=== PATIENT | male | born 1970 | race Caucasian/White ===

== ENCOUNTER 2017-10-19 04:37 | Inpatient (IN) | payer BC, SELFPAY ==
[2017-10-19] MEDS ORDERED: Nitroglycerin 2% Ointment 1 INCH/1 GM Packet ONE (04:58)
[2017-10-19 05:31] LABS: #Basophils 0.1 thou/uL (0.0-0.2); #Eosinphils 0.1 thou/uL (0.0-0.7); #Monocytes 1.2 thou/uL (0.11-0.59); #Neutrophils 11.8 thou/uL (1.40-6.50); %Basophils 0.5 % (0.0-1.0); %Eosinophils 0.6 % (0.0-10.0); %Lymphocytes 18.5 % (21.0-51.0); %Monocytes 7.2 % (0.0-10.0); %Neutrophils 73.2 % (42.0-75.0); Hemoglobin 16.9 g/dL (14.0-18.0); Mean Corpuscular HGB CONC 34.1 g/dL (32.0-36.0); Mean Corpuscular Hemoglobin 31.4 pg (27.0-31.0); Mean Corpuscular Volume 92.1 fl (80.0-94.0); Mean Platelet Volume 5.9 fL (7.4-10.4); Platelet Count 382 thou/uL (130-400); RBC Distribution Width 11.3 % (11.5-14.5); Red Blood Cell (RBC) Count 5.37 mill/uL (4.70-6.10); White Blood Cell (WBC) Count 16.1 thou/uL (4.8-10.8)
[2017-10-19 05:34] LABS: PTT 26.2 SEC (22.9-36.1); Prothrombin Time 12.9 SEC (12.0-14.7)
[2017-10-19 05:41] LABS: ALT (SGPT) 51 U/L (8-55); AST (SGOT) 92 U/L (5-34); Albumin 4.5 g/dL (3.5-5.0); Alkaline Phosphatase 83 U/L (40-150); Anion Gap 13 mmol/L (10-20); BUN (Urea Nitrogen) 22 mg/dL (8.9-20.6); Bilirubin, Total 0.6 mg/dL (0.2-1.2); CK (CPK) 1472 U/L (30-200); Calc. Creatinine Clearance 0 mL/min (70-130); Calcium 9.8 mg/dL (7.8-10.44); Carbon Dioxide 20 mmol/L (22-29); Chloride 105 mmol/L (98-107); Estimated GFR-MDRD 87; Glucose 170 mg/dL (70-105); Lipase 64 U/L (8-78); Protein, Total 7.5 g/dL (6.0-8.3); Sodium 134 mmol/L (136-145)
[2017-10-19 06:10] LABS: CKMB 175.9 ng/mL (0-6.6); Troponin I 6.902 ng/mL (< 0.028)
[2017-10-19] MEDS ORDERED: Nitroglycerin 50 MG/250 ML BOT 250 ML ONE (06:32)
[2017-10-19] MEDS ORDERED: Heparin 25,000 units/D5W 500 ML IV SCH (06:45)
[2017-10-19] MEDS ORDERED: Heparin 10,000 UNITS/ 10 ML VIAL SLOW IVP SCH (06:45)
[2017-10-19] MEDS ORDERED: Heparin 25,000 units/D5W 500 ML ONE (07:00)
[2017-10-19] MEDS ORDERED: Nitroglycerin 50 MG/250 ML BOT 250 ML IVPB SCH (07:15)
[2017-10-19] MEDS ORDERED: Acetaminophen 500 MG TAB ONE (07:16)
[2017-10-19] MEDS ORDERED: Lidocaine 1% (PF) 30 ML VIAL ONE (08:03)
--- NOTE | 2017-10-19 08:18 | RAD ---
PORTABLE CHEST 1 VIEW: Date: 10/19/17 Time: 0453 hours HISTORY: Chest pain. FINDINGS: The heart size is normal. The lungs are well expanded without focal areas of consolidation, pneumotho rax, or pleural effusions. IMPRESSION: No acute process. POS: [facility]
[2017-10-19] MEDS ORDERED: Nitroglycerin 0.4 MG TAB (25 Tab Bottle) SL PRN (08:49)
[2017-10-19] MEDS ORDERED: Morphine 4 MG/ML VIAL SLOW IVP PRN (08:49)
[2017-10-19] MEDS ORDERED: Acetaminophen 325 MG TAB PO PRN (08:57)
[2017-10-19] MEDS ORDERED: Ondansetron ODT 4 MG TAB PO PRN (08:57)
[2017-10-19] MEDS ORDERED: Zolpidem Tartrate 5 MG TAB PO PRN (08:57)
[2017-10-19] MEDS ORDERED: Sodium Chloride 0.9% 1,000 ML IV SCH (09:00)
[2017-10-19] MEDS ORDERED: Heparin 10,000 UNITS/1 ML VIAL ONE (09:13)
[2017-10-19 10:01] LABS: CKMB 269.8 ng/mL (0-6.6)
[2017-10-19 10:15] LABS: Troponin I 47.427 ng/mL (< 0.028)
[2017-10-19] MEDS ORDERED: Iopamidol 370 76% 50 ML VIAL FS ONE (10:26)
[2017-10-19] MEDS ORDERED: Iopamidol 370 76% 100 ML VIAL ONE (10:26)
[2017-10-19 13:53] VITALS: BMI 32.1
[2017-10-19] MEDS: Clopidogrel Bisulfate 75 MG TAB PO SCH (14:26)
--- NOTE | 2017-10-19 18:12 | CON ---
DATE OF CONSULTATION: 10/19/2017 SERVICE: Pulmonary Medicine. REASON FOR CONSULTATION: ICU patient. HISTORY OF PRESENT ILLNESS: The patient is a 47-year-old white male with past medical history significant for nothing prior to this presentation. He was in his usual state of health until 4 o'clock yesterday afternoon when he had an abrupt onset of some chest discomfort. He watched it for a period of a little less than a day. He finally presented to the emergency department and was discovered to have an ST-elevation myocardial infarction. He was brought to the [facility]. The circumflex artery was opened up and he had near immediate resolution in his chest discomfort. He currently denies any nausea, vomiting, or diarrhea. He does feel like he needs to have a bowel movement, but will have a hard time doing so in the bed. As such, he is requesting to get up at this point. He has already been cleared for gentle movement. PAST MEDICAL HISTORY: None. PAST SURGICAL HISTORY: None. SOCIAL HISTORY: He has a 40 to 41-[id number] history of smoking and until yesterday was smoking 1 pack per day. He drinks occasionally. He does not use any illicit drugs. 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 He has no exposure to chemicals, dust, asbestos, or tuberculosis otherwise. FAMILY HISTORY: Dad had coronary artery disease. Otherwise, noncontributory. ALLERGIES: No known drug allergies. MEDICATIONS: List of his inpatient medications was reviewed. No updates were made at this time. REVIEW OF SYSTEMS: General, head, ears, eyes, nose, throat, cardiovascular, respiratory, GI, , musculoskeletal, neurologic, and skin is negative except as mentioned in the HPI. PHYSICAL EXAMINATION: VITAL SIGNS: Afebrile, pulse 78, blood pressure 135/73, respirations 20, saturation 97% on room air. GENERAL: The patient is awake, alert, in no apparent distress. LUNGS: Excellent air entry. There is a minimally prolonged expiratory phase, but it does not translate into adventitious sounds. HEART: Normal rate, regular. ABDOMEN: Soft, nontender, nondistended. Bowel sounds are positive. MUSCULOSKELETAL: No cyanosis or clubbing. There is no pitting in the bilateral lower extremities. NEUROLOGIC: Grossly nonfocal. LABORATORY DATA: WBC 16.1, hemoglobin 16.9, platelets 382,000. INR is 1.0. Troponin is 47.4. BNP is 117. Basic metabolic profile and liver function studies are unremarkable. IMAGING: Chest x-ray demonstrates minimal fullness of the interstitium as well as subtle pulmonary vascular congestion. Otherwise, there is no acute cardiopulmonary abnormality present. ASSESSMENT: ST-elevation myocardial infarction, status post percutaneous coronary intervention to the circumflex artery. PLAN: I will continue to monitor the patient in the telemetry in the ICU for the next 24 hours. If there were no events on the playground monitor, he will likely be transitioned to the floor and/or discharged home based on cardiology' s preference. Pulmonary Critical Care will continue to follow so long as he remains in this location. I will screen him tomorrow for sleep apnea and if present, we will consider setting him up for a sleep study in the outpatient setting. 70 minutes have been devoted to this patient in various activities. I personally reviewed all imaging studies and laboratory data noted within this document. For fifty percent of this time, I was interacting with the patient at the bedside or coordinating care with the care team. For the remainder of the time I was immediately available to the patient in the hospital unit. ABBIE
--- NOTE | 2017-10-19 18:15 | HP ---
DATE OF CONSULTATION: 10/19/2017 CHIEF COMPLAINT: Chest pain. HISTORY OF PRESENT ILLNESS: Mr. Zaragoza is a very pleasant 47-year-old white gentleman who comes to [facility] for chest pain. He started having chest pain yesterday at 6:00 p.m. He thought it may b e indigestion. He went to sleep and he was woken up about an hour later with severe chest tightness. He decided to come in to the hospital early in the morning where he was found to have a normal EKG with no ST elevations. He had a troponin drawn that was elevated at 6, so Cardiology was called imme diately. On my evaluation, Mr. Zaragoza was diaphoretic and had ongoing chest pain, so we decided to t pawan him emergently to the catheterization lab. He was found to have an occluded left circumflex on c odominant system. He has a large LPL. This was wired and stented with a drug-eluting stent. He did well. His pain actually improved after the artery was revascularized. He has residual RCA disease. He is doing much better now. He in the ICU without any issues at that time. PAST MEDICAL HISTORY: None. PAST SURGICAL HISTORY: None. SOCIAL HISTORY: Smokes about a pack a day for the last 30 years. No drug use. Social alcohol use. MEDICATIONS: None. ALLERGIES: No known drug allergies. REVIEW OF SYSTEMS: A 12-point review of systems was done and is all negative unless stated in histor y of present illness. PHYSICAL EXAMINATION: VITAL SIGNS: Temperature 97.8, pulse 52, respiration rate 18, satting 96% on room air, blood pressur e currently 135/73. GENERAL: Awake, alert, oriented x3, in no distress. HEENT: Normocephalic, atraumatic. NECK: Supple. LUNGS: Clear. CARDIOVASCULAR: S1, S2, no S3 or S4. There is a very soft grade 2/6 systolic murmur right upper misti rnal border. ABDOMEN: Soft, positive bowel sounds. EXTREMITIES: No edema. SKIN: Warm and dry. LABORATORY WORK: Reviewed. White count of 16, hemoglobin 16, hematocrit 49, platelet count 382. Co ags were reviewed. Chemistry was reviewed. Sodium 134, potassium was 4.0, chloride 105, carbon diox jarad 20, anion gap of 13, BUN 22, creatinine 0.93, GFR of 87. Initial troponin was 6.9 with a CK-MB o f 175. Second troponin after PCI was 47 with a CK-MB of 269. BNP was 117, albumin was normal at 4.5 . EKG was reviewed, normal sinus rhythm. There are Q-waves in the inferior leads. Initial EKG with ab out 0.[address] elevation on just lead III with mild reciprocal changes. Not suggestive of an acute SC . Chest x-ray showed no acute process. ASSESSMENT AND PLAN: Acute myocardial infarction. Left circumflex myocardial infractions are typica l of being silent on the EKG. He had a successful stenting to his left circumflex with drug-coated s tent. He states he is 2 months away from getting insurance from his current work place and he is jesenia y good with his medications. We did load him on Brilinta, but we will plan on continuing him on Plav ix for this to be more affordable. PLAN: 1. Dual antiplatelet therapy for minimum of one year. 2. We will add high dose statin to his regimen. We will get lipid profile in the morning. 3. Echocardiogram to be done. 4. We will observe in the ICU overnight, probably transfer him to the floor tomorrow morning. 5. Lovenox subcutaneous for DVT prophylaxis. 6. PPI for stress ulcer prophylaxis. 7. FULL CODE. 8. Disposition: Pending clinical evolution. I expect him to be in the hospital maybe one more day depending on echocardiogram findings.
[2017-10-20 04:38] LABS: #Basophils 0.1 thou/uL (0.0-0.2); #Eosinphils 0.2 thou/uL (0.0-0.7); #Lymphocytes 2.8 thou/uL (1.20-3.40); #Monocytes 1.1 thou/uL (0.11-0.59); #Neutrophils 8.4 thou/uL (1.40-6.50); %Basophils 0.7 % (0.0-1.0); %Eosinophils 1.7 % (0.0-10.0); %Lymphocytes 21.9 % (21.0-51.0); %Monocytes 8.6 % (0.0-10.0); Hemoglobin 16.2 g/dL (14.0-18.0); Mean Corpuscular Hemoglobin 32.2 pg (27.0-31.0); Mean Corpuscular Volume 94.7 fl (80.0-94.0); Mean Platelet Volume 6.3 fL (7.4-10.4); Platelet Count 309 thou/uL (130-400); RBC Distribution Width 11.4 % (11.5-14.5); Red Blood Cell (RBC) Count 5.05 mill/uL (4.70-6.10); White Blood Cell (WBC) Count 12.6 thou/uL (4.8-10.8)
[2017-10-20 05:00] LABS: ALT (SGPT) 56 U/L (8-55); AST (SGOT) 96 U/L (5-34); Albumin 4.2 g/dL (3.5-5.0); Alkaline Phosphatase 73 U/L (40-150); Anion Gap 12 mmol/L (10-20); BUN (Urea Nitrogen) 14 mg/dL (8.9-20.6); Bilirubin, Total 1.1 mg/dL (0.2-1.2); Calc. Creatinine Clearance 147 mL/min (70-130); Calcium 9.5 mg/dL (7.8-10.44); Carbon Dioxide 22 mmol/L (22-29); Chloride 106 mmol/L (98-107); Cholesterol 230 mg/dl (< 200 Desired); Estimated GFR-MDRD Greater than 90; Globulin 2.7 g/dL (2.4-3.5); Glucose 157 mg/dL (70-105); HDL Cholesterol 33 mg/dL (>60 Neg Risk); LDL Cholesterol, Calculated 152 mg/dL; Potassium 3.9 mmol/L (3.5-5.1); Protein, Total 6.9 g/dL (6.0-8.3); Sodium 136 mmol/L (136-145); Triglycerides 224 mg/dL (Less than 150)
[2017-10-20] MEDS: Carvedilol 3.125 MG TAB PO SCH ×2 (08:29→17:17)
[2017-10-20] MEDS: Clopidogrel Bisulfate 75 MG TAB PO SCH (08:30)
[2017-10-20] MEDS: Lisinopril 2.5 MG TAB PO SCH (08:30)
--- NOTE | 2017-10-20 10:31 | PRG ---
DATE OF SERVICE: 10/20/2017 SERVICE: Pulmonary Medicine. INTERVAL HISTORY: The patient is doing great from a cardiovascular and respiratory standpoint. He denies any fevers, chills, nausea, vomiting or chest discomfort. There were no overnight events. He is eating comfortably. He did not have any orthopnea. PHYSICAL EXAMINATION: VITAL SIGNS: Afebrile, pulse 78, blood pressure a 151/103, respirations 18, saturation 97% on room air. GENERAL: The patient is awake, alert, no apparent distress. LUNGS: Decent air entry. There is a little bit of crackles in the bibasilar region. HEART: Normal rate, regular. ABDOMEN: Soft, nontender, nondistended. Bowel sounds are positive. MUSCULOSKELETAL: No cyanosis or clubbing. No pitting in the bilateral lower extremities. NEUROLOGIC: Grossly nonfocal. LABORATORY DATA: WBC 12.6, hemoglobin 16.2, platelets 309,000. Basic metabolic profile is completely unremarkable. AST is gently up trending. ALT is gently up trending. Triglyceride 224. Liver function studies are otherwise unremarkable. ASSESSMENT: 1. Acute ST elevation myocardial infarction, status post percutaneous coronary intervention to the circumflex. 2. Obstructive sleep apnea, possible. PLAN: The patient is doing fantastic from a cardiovascular and respiratory standpoint. From my perspective, he is stable for transition to the telemetry unit or the floor. I have asked him to set up an appointment with me in the outpatient setting if he would like to look into sleep apnea. 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 ABBIE
--- NOTE | 2017-10-20 16:04 | PDOC.CTH ---
Cardiology Progress Note - Subjective he is doing better. He denies any chest pain, tightness, pressure, SOB. His right groin is without issues. - Objective Vital Signs Temp Pulse Pulse Pulse Resp BP BP 10/20/17 15:00 98.1 F 10/20/17 12:00 98.6 F 10/20/17 10:32 77 68 114/84 10/20/17 08:30 78 151/103 H 10/20/17 07:44 98.0 F 86 18 10/20/17 07:40 98.0 F 10/20/17 05:00 98.0 F BP Pulse Ox Pulse Ox Pulse Ox 10/20/17 15:00 10/20/17 12:00 10/20/17 10:32 123/86 97 98 10/20/17 08:30 10/20/17 07:44 97 10/20/17 07:40 10/20/17 05:00 10/19/17 10/20/17 10/21/17 06:59 06:59 06:59 Intake Total 1256 780 Output Total 2125 650 Balance -869 130 - Physical Examination General/Neuro: alert & oriented x3, NAD Neck: no JVD present Lungs: CTA, unlabored respirations Heart: RRR Abdomen: NT/ND Extremities: other: (no edema.) - Telemetry Telemetry Rhythm: NSR - Labs Result Diagrams: 10/20/17 03:47 10/20/17 03:47 Troponin/CKMB CK-MB (CK-2) 269.8 ng/mL (0-6.6) H* 10/19/17 09:21 Troponin I 47.427 ng/mL (< 0.028) H* 10/19/17 09:21 - Assessment/Plan 1. Acute MA. 2. S/.P LCx stent, LESLYE. 3. Tobacco use PLAN: - Tobacco cessation counselling. - Continue dual antiplatelet therapy with aspirin and plavix for 1 yr. - Low dose ACEI and BB. - Will transfer to telemetry floor. - Home tomorrow if he remains stable. - 30 minutes critical care.
[2017-10-21] MEDS: Lisinopril 2.5 MG TAB PO SCH (10:09)
[2017-10-21] MEDS: Carvedilol 3.125 MG TAB PO SCH (10:10)
[2017-10-21] MEDS: Clopidogrel Bisulfate 75 MG TAB PO SCH (10:10)
--- NOTE | 2017-10-21 11:49 | PDOC.CTH ---
Cardiology Progress Note - Subjective The pt seen and examined. No overnight events. No cardiac complaints. He is ready to d/kiara. - Objective Vital Signs Temp Pulse Pulse Pulse Resp BP BP 10/21/17 10:09 76 122/80 10/21/17 10:03 77 73 138/92 H 10/21/17 04:00 97.6 F 76 18 BP BP Pulse Ox Pulse Ox Pulse Ox 10/21/17 10:09 10/21/17 10:03 122/80 96 97 10/21/17 04:00 112/65 93 L 10/20/17 10/21/17 10/22/17 06:59 06:59 06:59 Intake Total 1256 1140 360 Output Total 2125 650 Balance -869 490 360 - Physical Examination General/Neuro: alert & oriented x3 Neck: no JVD present Heart: RRR Abdomen: soft Extremities: other: (No edema) - Telemetry Telemetry Rhythm: SR 89 - Labs Result Diagrams: 10/20/17 03:47 10/20/17 03:47 Troponin/CKMB CK-MB (CK-2) 269.8 ng/mL (0-6.6) H* 10/19/17 09:21 Troponin I 47.427 ng/mL (< 0.028) H* 10/19/17 09:21 - Assessment/Plan 1. Acute ID with S/P Lt Cx stent x 1 LESLYE on 10/19/17 - Stable with BBlocker, LAURA , ASA 81mg, and Plavix. Start Lipitor 10mg daily. Continue dual antiplatelet therapy with aspirin and plavix for 1 yr. 2. Tobacco use - smoking cessation education given to the pt. MAR reviewed * From Cardiac standpoint, the pt is stable to d/kiara home. The pt will f/u with Dr Koroma within 2-4 wks. Review of Systems - Review of Systems Constitutional: reports: no symptoms reported EENTM: reports: no symptoms reported Respiratory: reports: no symptoms reported Cardiac (ROS): reports: no symptoms reported ABD/GI: reports: no symptoms reported : reports: no symptoms reported Musculoskeletal: reports: no symptoms reported
[2017-10-21 12:14] VITALS: BP 131/74; TEMP 98.1
[2017-10-21] MEDS ORDERED: Atorvastatin Calcium 10 MG TAB PO SCH (21:00)
== END 2017-10-21 14:18 | disposition home or self-care (01) | DRG 247 ==
LOC: ERS 04:37 → CCU 09:34 → 2NO 10-20 15:33
PROVIDERS: ADMIT Internal Medicine Cardiovascular Disease; ATTEND Internal Medicine Cardiovascular Disease
PROC: 027034Z Dilation of Coronary Artery, One Artery with Drug-eluting Intraluminal Device, Percutaneous Approach (ICD-10-PCS; principal; 2017-10-19)
DX: I21.3 ST elevation (STEMI) myocardial infarction of unspecified site (principal); F17.210 Nicotine dependence, cigarettes, uncomplicated; G47.33 Obstructive sleep apnea (adult) (pediatric)
CPT/HCPCS: 36415; 71045; 80053; 80061; 82550; 82553; 83690; 83880; 84484; 85025; 85347; 85610; 85730; 92928; 93005; 93010; 93306; 93458; 93798; 96361; 96365; 96376; C1725; C1769; C1874; C1887; C9600; J1644; J2001

== ENCOUNTER 2018-01-10 09:28 | Observation (INO) | payer BC, SELFPAY ==
[2018-01-10] MEDS ORDERED: Nitroglycerin 0.4 MG TAB (25 Tab Bottle) ONE (09:43)
[2018-01-10 09:49] LABS: #Basophils 0.1 thou/uL (0.0-0.2); #Eosinphils 0.1 thou/uL (0.0-0.7); #Lymphocytes 2.4 thou/uL (1.20-3.40); #Monocytes 0.6 thou/uL (0.11-0.59); #Neutrophils 5.1 thou/uL (1.40-6.50); %Basophils 0.8 % (0.0-1.0); %Eosinophils 1.3 % (0.0-10.0); %Lymphocytes 29.2 % (21.0-51.0); %Neutrophils 61.7 % (42.0-75.0); Hemoglobin 15.3 g/dL (14.0-18.0); Mean Corpuscular HGB CONC 35.2 g/dL (32.0-36.0); Mean Corpuscular Hemoglobin 31.8 pg (27.0-31.0); Mean Corpuscular Volume 90.4 fL (78.0-98.0); Mean Platelet Volume 6.4 fL (7.4-10.4); Platelet Count 276 thou/uL (130-400); RBC Distribution Width 11.1 % (11.5-14.5); Red Blood Cell (RBC) Count 4.82 mill/uL (4.70-6.10); White Blood Cell (WBC) Count 8.2 thou/uL (4.8-10.8)
[2018-01-10 10:11] LABS: ALT (SGPT) 26 U/L (8-55); AST (SGOT) 21 U/L (5-34); Albumin 4.6 g/dL (3.5-5.0); Alkaline Phosphatase 88 U/L (40-150); Anion Gap 13 mmol/L (10-20); BUN (Urea Nitrogen) 20 mg/dL (8.9-20.6); Bilirubin, Total 0.6 mg/dL (0.2-1.2); CK (CPK) 433 U/L (30-200); Calc. Creatinine Clearance 0 mL/min (70-130); Calcium 9.7 mg/dL (7.8-10.44); Carbon Dioxide 23 mmol/L (22-29); Chloride 107 mmol/L (98-107); Estimated GFR-MDRD 78; Globulin 2.8 g/dL (2.4-3.5); Glucose 130 mg/dL (70-105); Lipase 38 U/L (8-78); Potassium 3.6 mmol/L (3.5-5.1); Protein, Total 7.4 g/dL (6.0-8.3); Sodium 139 mmol/L (136-145)
[2018-01-10 10:15] LABS: Troponin I Less than 0.010 ng/mL (< 0.028)
--- NOTE | 2018-01-10 10:43 | RAD ---
PORTABLE CHEST ONE VIEW: 01/10/2018 9:47 a.m. HISTORY: Chest pain. COMPARISON: 10/19/2017 FINDINGS: The heart size is normal. The lungs are well expanded without focal areas of consolidation, pneumoth oraces, or pleural effusions. IMPRESSION: No radiographic evidence of acute cardiopulmonary process. POS: [facility]
[2018-01-10] MEDS ORDERED: Nitroglycerin 2% Ointment 1 INCH/1 GM Packet ONE (11:56)
[2018-01-10] MEDS ORDERED: Ondansetron ODT 4 MG TAB PO PRN (13:53)
[2018-01-10] MEDS ORDERED: Ondansetron HCl/PF 4 MG/2 ML Vial IVP PRN (13:53)
[2018-01-10] MEDS ORDERED: Acetaminophen 325 MG TAB PO PRN (13:53)
[2018-01-10 14:05] VITALS: BMI 30.9
[2018-01-10] MEDS: Nitroglycerin 2% Ointment 1 INCH/1 GM Packet TOP SCH ×2 (15:14→20:17)
--- NOTE | 2018-01-10 15:41 | PDOC.EVN ---
Event Note - Event Note Event Note: discussed with Dr. Vides - cover with one dose of lovenox while waiting for troponins. Will start diet. Further plan based on troponin and telemetry monitoring as well as pain. Elevated blood sugars - check hemoglobin a1c and fasting glucose in AM
[2018-01-10] MEDS ORDERED: Enoxaparin Sodium 100 MG/ML SYRINGE SC SCH (15:45)
[2018-01-10 16:15] LABS: Troponin I Less than 0.010 ng/mL (< 0.028)
[2018-01-10 16:49] LABS: Hemoglobin A1c 6.6 % (4.0-6.0)
[2018-01-10] MEDS: Sodium Chloride 0.9% 1,000 ML IV SCH (16:52)
[2018-01-10 18:38] LABS: Troponin I Less than 0.010 ng/mL (< 0.028)
[2018-01-10] MEDS ORDERED: Lisinopril 2.5 MG TAB PO SCH (21:00)
[2018-01-10] MEDS ORDERED: Carvedilol 3.125 MG TAB PO SCH (21:00)
[2018-01-10] MEDS ORDERED: Atorvastatin Calcium 10 MG TAB PO SCH (21:00)
[2018-01-10] MEDS ORDERED: Clopidogrel Bisulfate 75 MG TAB PO SCH (21:00)
--- NOTE | 2018-01-10 22:22 | HP ---
DATE OF SERVICE: 01/10/2018 CHIEF COMPLAINT: Chest pain. HISTORY OF PRESENT ILLNESS: This is a 47-year-old male with history of coronary artery disease, status post stent placement in 10/2017 on dual antiplatelet therapy, who presents to the emergency room with ongoing chest pain. Patient reports it started when he woke up around 2:30 this morning and has been persistent, describes that "more like angina" in the center of his chest to the left side with radiation to his left shoulder. It is sharp at times, steady, and constant and aching as well. He notes difficulty breathing earlier today, which has improved. 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 Despite having nitroglycerin, he did not take any. He reports the pain is different compared to October when he came in and found to have a non-ST elevation LA, during which a stent was placed in his left circumflex, and describes that pain as an "electric shock." He did not take any medicines to reduce the pain. Denies missing any of his regular medicines, denies any precipitants or relieving factors. Patient does describe a headache now after nitroglycerin was placed. He denies any nausea or vomiting, and rates the current pain as a 1/10 in severity. In the emergency room, he received 1 inch of nitro paste, 4 mg of morphine, 0.4 mg sublingual nitroglycerin, and 324 mg of aspirin and Hospitalist called for admission. PAST MEDICAL HISTORY: Coronary artery disease with history of stent in the left circumflex October 2017. PAST SURGICAL HISTORY: Stent placement as above. SOCIAL HISTORY: Patient uses tobacco 1/2 pack per day and reports that he is cutting down. He is recently from his . His son Yomi is his surrogate decision maker and he is a FULL CODE. MEDICATIONS: Reconciled with the patient and are the same compared to his last hospital discharge. 1. Nitroglycerin 0.4 mg sublingual as needed. 2. Coreg 3.125 mg at night only. 3. Atorvastatin 10 mg at night. 4. Lisinopril 2.5 mg at night. 5. Plavix 75 mg at night. 6. Aspirin 81 mg at night. ALLERGIES TO MEDICATIONS: None. FAMILY HISTORY: Significant for father who has coronary artery disease, history of bypass, and congestive heart failure. REVIEW OF SYSTEMS: Positive for headache, negative for abdominal pain, nausea, vomiting, change in bowel or bladder function. All remaining review of systems are reviewed and negative. PHYSICAL EXAMINATION: VITAL SIGNS: Temperature 97.7, pulse 62, respirations 20, saturations 95% on room air, blood pressure 118/74. GENERAL: Awake, alert, responsive, in no apparent distress, able to speak in full sentences. HEENT: Pupils equal and round. Extraocular movements intact. Oral mucosa is pink and moist. NECK: Supple, nontender. LYMPHATICS: No palpable cervical or supraclavicular lymphadenopathy. LUNGS: Clear to auscultation bilateral. No audible wheezing, rhonchi, or rales. HEART: Normal S1, S2, regular rate and rhythm, no audible murmurs. ABDOMEN: Soft with present bowel sounds. Nontender, nondistended. EXTREMITIES: No clubbing, cyanosis, or edema. VASCULAR: 2+ dorsalis pedis pulses. SKIN: No visible rashes. IMAGING DATA: Chest x-ray is personally reviewed, no acute changes. EKG is personally reviewed, sinus rhythm, normal axis, no ST changes. LABORATORY DATA: 1. CBC: 8.2, 15.3, 43.5, 276. 2. D-dimer less than 0.27. 3. Renal panel: 139, 3.6, 107, 23, 20, 1.02, 130. 4. LFTs negative. 5. Troponin less than 0.01, CK-MB 7, CK 433. IMPRESSION: 1. Unstable angina in a patient with known coronary artery disease and stent placement approximately 2 months ago. 2. Tobacco abuse. PLAN: 1. T ongoing chest pain is concerning, this with the nitroglycerin paste. We will add morphine. He has received aspirin, last dose of Plavix was last night , is on a beta-nora at night and we will continue that as well as his low- dose LAURA inhibitor. 2. Cardiology consulted and made aware of the ongoing pain without EKG changes. We will obtain two more sets of troponins. 3. IV fluids while n.p.o. awaiting Cardiology evaluation and follow up troponins. 4. Nicotine replacement if needed. 5. Deep venous thrombosis prophylaxis, patient is ambulatory. 6. Gastrointestinal prophylaxis not indicated. 7. Code status is FULL. Surrogate decision maker is his son Yomi. I reviewed the plan of care with the patient. No questions or further needs at end of evaluation. Patient is at high risk given age, comorbidities, and current presentation. Addendum - after dictation, discussed patient with Dr. Vides and pt received one dose of 1 mg/kg lovenox while awaiting additional troponin levels. Pt also noted to have elevated blood sugars in the past - a hemoglobin a1c test and fasting AM blood sugar are ordered. MTDD
--- NOTE | 2018-01-10 22:56 | CON ---
DATE OF CONSULTATION: 01/10/2018 INDICATION FOR CONSULTATION: A 47-year-old patient with known coronary artery disease, who was admit sara with chest pain. HISTORY OF PRESENT ILLNESS: This very pleasant 47-year-old gentleman was recently seen by Dr. Koroma on 10/19/2017 with an acute myocardial infarction. He underwent cardiac catheterization, which show ed evidence of a left circumflex occlusion. He underwent angioplasty and stent placement. He also h ad some residual disease in the right coronary artery and he was discharged to home after about 2 day s and did very well. He had a large posterolateral branch and suffered an inferior myocardial infarc tion with his previous myocardial infarction. His peak troponin I in October was 47. At this time, e troponin I remains negative. The story is that this gentleman had noticed some chest discomfort si nce about 2:30 this morning when he got up, but he went to work. 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 A t work, he was feeling some discomfort and knows that he did not feel like he could work as fast that he usually did, and then eventually was called by his hydrochloric area supervisor after about being at work for 4 ibeth rs during the lunch break, and then had some interaction or argument with the hydrochloric area supervisor, and then ev entually said that he was leaving and going to the hospital. He has also noticed that he has been simeon ving some retrosternal discomfort, which sometimes he says is sharp and stabbing, radiating to the le ft shoulder. Sometimes it is dull. Sometimes he complains of some shortness of breath. He said thi s is different pain than what he suffered with his myocardial infarction. He said he knows what that feels like. He has also been having occasional cough with some productive phlegm, but otherwise has been doing quite well, but states he has some chest discomfort ever since he left the hospital and s ays he sometimes feels like maybe he can feel the stent, but he has had no other significant changes. PAST MEDICAL HISTORY: Relatively unremarkable except for the coronary artery disease with angioplast y and stent placement. PAST SURGICAL HISTORY: He has had no past surgical history except for the stent placement. SOCIAL HISTORY: He continues to smoke half a pack a day and has done so for 30 years. He has no sig nificant alcohol use except for occasionally, just social. MEDICATIONS: He is on Plavix, aspirin, Lipitor, lisinopril, and Coreg. ALLERGIES: None. REVIEW OF SYSTEMS: Twelve-point review of systems is unremarkable except what was noted in the histo ry of present illness. PHYSICAL EXAMINATION: GENERAL: Reveals a well-developed, well-nourished gentleman who is in no acute distress at this time . He is alert and oriented. VITAL SIGNS: Blood pressure 118/74. He is afebrile. Heart rate is in the 60s and shows a sinus rhy thm, respiratory rate is 20, O2 saturation is 95%. HEENT: Shows the head to be normocephalic and atraumatic. Carotid pulses are present. No bruits no sara. CHEST: Clear to auscultation without rales, rhonchi, or wheezing. CARDIOVASCULAR: Reveals regular rate and rhythm. Normal S1, S2. There is no S3, S4. There were no significant murmurs, heaves, thrills, bruits, or rubs noted. ABDOMEN: Soft and nontender with positive bowel sounds. No organomegaly or masses are noted. Femor al pulses are present. EXTREMITIES: Showed no clubbing, cyanosis, or edema. NEUROLOGIC: The patient appears to be fully intact. SKIN: Warm and dry. LABORATORY AND X-RAY FINDINGS: His laboratory data did show a CPK of 433; however, previously back i n October, it was 1472. It was noted his cardiac enzymes are negative at this time, and I have dictate d earlier what they were. His blood sugar is also elevated at 130. Previously, the blood sugars als o were elevated in the 150s-170s. The blood sugars have been elevated. In October, they were 170 and today it was in 130s. He is unaware that he is a diabetic, but may certainly be a diabetic. This wi ll need to be further evaluated. Otherwise, his chemistries are unremarkable. The creatinine is 1.0 2. His hemoglobin was 15.3. EKG shows a normal sinus rhythm with what appears to be old inferior myocardial infarction, most like ly due to the dominant or codominant system with a large posterolateral branch in the left circumflex . IMPRESSION: 1. Chest pain of uncertain etiology. This does not, at this time, appear to be cardiac in nature wi th no significant EKG changes and enzymes being negative, but we will need to follow him with repeat set of enzymes. Since he had a recent stent placement, he may need to undergo repeat cardiac cathete rization. He also had further stenosis in the right coronary artery, which did not appear to be nece ssary to intervene at that time, it was less than 70% stenosis as I recall. We will continue his med ical management at this time. I will leave further care of the patient up to Dr. Koroma when he eval uates him later today or tomorrow morning. Further cardiac enzymes are still pending. He may need t o undergo stress testing; however, he did have stent placement only 2 months ago. 2. Elevated blood sugars. It appears he may need to be started on diabetic medications. 3. History of tobacco abuse. He was again informed that he needs to absolutely stop smoking.
[2018-01-11] MEDS: Sodium Chloride 0.9% 1,000 ML IV SCH ×2 (02:46→10:51)
[2018-01-11 04:38] LABS: #Basophils 0.1 thou/uL (0.0-0.2); #Eosinphils 0.1 thou/uL (0.0-0.7); #Lymphocytes 2.7 thou/uL (1.20-3.40); #Monocytes 0.7 thou/uL (0.11-0.59); #Neutrophils 4.2 thou/uL (1.40-6.50); %Basophils 0.8 % (0.0-1.0); %Eosinophils 1.9 % (0.0-10.0); %Lymphocytes 34.5 % (21.0-51.0); %Monocytes 8.7 % (0.0-10.0); %Neutrophils 54.2 % (42.0-75.0); Hemoglobin 14.5 g/dL (14.0-18.0); Mean Corpuscular HGB CONC 35.6 g/dL (32.0-36.0); Mean Corpuscular Hemoglobin 32.8 pg (27.0-31.0); Mean Corpuscular Volume 92.3 fL (78.0-98.0); Mean Platelet Volume 6.3 fL (7.4-10.4); Platelet Count 220 thou/uL (130-400); RBC Distribution Width 11.2 % (11.5-14.5); Red Blood Cell (RBC) Count 4.42 mill/uL (4.70-6.10); White Blood Cell (WBC) Count 7.7 thou/uL (4.8-10.8)
[2018-01-11 04:49] LABS: Anion Gap 9 mmol/L (10-20); BUN (Urea Nitrogen) 16 mg/dL (8.9-20.6); Calc. Creatinine Clearance 131 mL/min (70-130); Calcium 8.7 mg/dL (7.8-10.44); Carbon Dioxide 26 mmol/L (22-29); Chloride 107 mmol/L (98-107); Estimated GFR-MDRD 87; Glucose 129 mg/dL (70-105); Potassium 3.6 mmol/L (3.5-5.1); Sodium 138 mmol/L (136-145)
[2018-01-11] MEDS ORDERED: Aspirin 325 MG TAB PO SCH (09:00)
[2018-01-11 11:47] VITALS: BP 170/101; TEMP 98.7
--- NOTE | 2018-01-11 13:35 | PDOC.CTH ---
Cardiology Progress Note - Subjective He is doing well. no chest pain, tightness, pressure, SOB. - Objective Vital Signs Temp Pulse Resp BP BP Pulse Ox 01/11/18 11:20 98.7 F 57 L 16 170/101 H 96 01/11/18 08:00 98.8 F 57 L 18 01/11/18 07:45 98.8 F 57 L 18 156/93 H 01/11/18 02:44 97.5 F L 54 L 16 123/77 94 L Weight 209 lb 9.6 oz 01/10/18 01/11/18 01/12/18 06:59 06:59 06:59 Intake Total 1830 25 Output Total 1025 Balance 805 25 - Physical Examination General/Neuro: alert & oriented x3, NAD Neck: no JVD present Lungs: unlabored respirations Heart: RRR Abdomen: NT/ND Extremities: other: (no edema.) - Telemetry Telemetry Rhythm: NSR - Labs Result Diagrams: 01/11/18 04:20 01/11/18 04:20 Troponin/CKMB CK-MB (CK-2) 7.0 ng/mL (0-6.6) H* 01/10/18 09:43 Troponin I Less than 0.010 ng/mL (< 0.028) 01/10/18 17:56 - Assessment/Plan 1. Chest pain 2. CAD 3. Tobacco abuse PLAN: - His presentation today is not an ACS, his troponins are negative - He has residual RCA disease that will require intervention. - I offered doing this today or tomorrow but he would like to go home and set this up as an outpatient. - He may be discharged home today. - Will set him up for planned PCI to RCA.
--- NOTE | 2018-01-11 15:10 | DIS ---
PRIMARY CARE PHYSICIAN: None. PRIMARY HEMATOLOGY SUPERVISOR: Dr. Chidi Koroma. DATE OF ADMISSION: 01/10/2018 DATE OF DISCHARGE: 01/11/2018 DISCHARGE DIAGNOSES: 1. Chest pain, likely noncardiac in nature. 2. History of atherosclerotic heart disease of [place] coronary arteries without angina. 3. Ongoing tobacco abuse. 4. Hypertension. CONSULTATIONS: Cardiology, Dr. Chidi Koroma. PROCEDURES: None. HISTORY AND PHYSICAL: Mr. Zaragoza is a 39-year-old gentleman admitted here back in 10/2017 for acute coronary syndrome. He had a stent placed at that time and did well. [facility], complaining of chest discomfort. Negative biomarkers except initiall y positive, CK-MB at 7.0. We were called for admit. HOSPITAL COURSE: The patient was seen and examined overnight. He was placed in observation and seri al cardiac biomarkers were obtained. These were negative. Patient was seen by Dr. Vides last evening and felt that she would defer any plans for procedures to Dr. Koroma. The patient had no further sy mptoms overnight and this morning was feeling back to his baseline. He was seen by Dr. Koroma at [facility], and he cleared him for discharge with outpatient followup and testing. PHYSICAL EXAMINATION: The patient was seen and examined on the day of discharge. Discharge plan and disposition was discussed with the patient face to face at the bedside. DISCHARGE MEDICATIONS: 1. Aspirin 81 mg daily. 2. Atorvastatin 10 mg p.o. at bedtime. 3. Carvedilol 3.125 mg p.o. b.i.d. 4. Plavix 75 mg p.o. at bedtime. 5. Zestril 2.5 mg p.o. at bedtime. 6. Nitrostat 0.4 mg sublingual every 5 minutes p.r.n. chest pain. DISCHARGE CONDITION: Stable. DISPOSITION: Discharged home via private vehicle. DISCHARGE ACTIVITY: Per cardiopulmonary limits. DISCHARGE DIET: Heart healthy recommended. FOLLOWUP APPOINTMENT: 1. Primary care physician within a week. 2. Dr. Koroma in 1-2 weeks per his clinic.
--- NOTE | 2018-01-13 15:16 | EKG ---
Test Reason : Blood Pressure : / mmHG Vent. Rate : 060 BPM Atrial Rate : 060 BPM P-R Int : 142 ms QRS Dur : 096 ms QT Int : 396 ms P-R-T Axes : 063 -09 017 degrees QTc Int : 396 ms Normal sinus rhythm Normal ECG Confirmed by KRYSTAL RANDHAWA MD ([id number]), editor school photograph THEA SORENSEN ([id number]) on 01/13/2018 3:16:26 PM Referred By: Confirmed By:KRYSTAL RANDHAWA MD
== END 2018-01-11 14:25 | disposition home or self-care (01) ==
LOC: ERS 09:28 → 2SW 12:12
PROVIDERS: ADMIT Family Medicine; ATTEND Family Medicine
DX: R07.9 Chest pain, unspecified (principal); I25.10 Atherosclerotic heart disease of native coronary artery without angina pectoris; I25.2 Old myocardial infarction; F17.210 Nicotine dependence, cigarettes, uncomplicated; R73.9 Hyperglycemia, unspecified; Z79.02 Long term (current) use of antithrombotics/antiplatelets; Z79.82 Long term (current) use of aspirin; Z79.899 Other long term (current) drug therapy; Z95.5 Presence of coronary angioplasty implant and graft
CPT/HCPCS: 36415; 71045; 80048; 80053; 82553; 83036; 83690; 83880; 84484; 85025; 85379; 90471; 90732; 93005; 93010; 94760; 96361; 96372; 96374; 96376; A4216; G0009; G0378; J1650; J2270

== ENCOUNTER 2018-04-11 10:14 | Emergency (ER) | payer BC, SELFPAY ==
--- NOTE | 2018-04-11 10:48 | RAD ---
CHEST 2 VIEWS: HISTORY: Cough. FINDINGS: No comparison. Cardiac silhouette and pulmonary vasculature are unremarkable. Mediastinum is midlin e. No confluent airspace consolidation, pneumothorax, or pleural fluid. IMPRESSION: No acute cardiopulmonary abnormalities are demonstrated. POS: [facility]
== END 2018-04-11 12:00 | disposition home or self-care (01) ==
LOC: ERS 10:14
DX: J40 Bronchitis, not specified as acute or chronic (principal); I25.2 Old myocardial infarction; E78.5 Hyperlipidemia, unspecified; I10 Essential (primary) hypertension; F17.210 Nicotine dependence, cigarettes, uncomplicated; Z79.899 Other long term (current) drug therapy; Z79.82 Long term (current) use of aspirin
CPT/HCPCS: 71046; 93005

== ENCOUNTER 2018-10-31 13:12 | Emergency (ER) | payer BC, SELFPAY ==
[2018-10-31] MEDS ORDERED: Aspirin Chewable 81 MG TAB ONE (13:28)
[2018-10-31 13:41] LABS: #Basophils 0.2 thou/uL (0.0-0.2); #Eosinphils 0.3 thou/uL (0.0-0.7); #Neutrophils 5.7 thou/uL (1.40-6.50); %Basophils 1.6 % (0.0-1.0); %Eosinophils 2.3 % (0.0-10.0); %Lymphocytes 36.2 % (21.0-51.0); %Monocytes 8.8 % (0.0-10.0); %Neutrophils 51.1 % (42.0-75.0); Mean Corpuscular HGB CONC 34.7 g/dL (32.0-36.0); Mean Corpuscular Hemoglobin 32.3 pg (27.0-31.0); Mean Corpuscular Volume 93.2 fL (78.0-98.0); Mean Platelet Volume 6.2 fL (7.4-10.4); Platelet Count 337 thou/uL (130-400); RBC Distribution Width 11.3 % (11.5-14.5); Red Blood Cell (RBC) Count 4.95 mill/uL (4.70-6.10); White Blood Cell (WBC) Count 11.2 thou/uL (4.8-10.8)
--- NOTE | 2018-10-31 13:59 | RAD ---
PORTABLE CHEST: HISTORY: Chest pain. COMPARISON: 01/10/2018 FINDINGS: Heart size and mediastinum are within normal limits. The lungs are clear of infiltrates. No signifi cant bony findings. IMPRESSION: No active intrathoracic disease. POS: [facility]
[2018-10-31 14:10] LABS: ALT (SGPT) 26 U/L (8-55); AST (SGOT) 17 U/L (5-34); Albumin 4.2 g/dL (3.5-5.0); Alkaline Phosphatase 76 U/L (40-150); Anion Gap 15 mmol/L (10-20); BUN (Urea Nitrogen) 27 mg/dL (8.9-20.6); Bilirubin, Total 0.3 mg/dL (0.2-1.2); CK (CPK) 146 U/L (30-200); Calc. Creatinine Clearance 0 mL/min (70-130); Calcium 9.8 mg/dL (7.8-10.44); Carbon Dioxide 21 mmol/L (22-29); Chloride 105 mmol/L (98-107); Estimated GFR-MDRD 89; Globulin 2.7 g/dL (2.4-3.5); Glucose 97 mg/dL (70-105); Lipase 554 U/L (8-78); Potassium 3.9 mmol/L (3.5-5.1); Protein, Total 6.9 g/dL (6.0-8.3); Sodium 137 mmol/L (136-145)
--- NOTE | 2018-10-31 15:17 | ULT ---
GALLBLADDER ULTRASOUND: Date: 10/31/18 INDICATION: Abdominal pain. FINDINGS: No focal hepatic lesion. There are low level echoes of the gallbladder lumen which may relate to gall bladder sludge. No evidence of wall thickening or pericholecystic edema. Common duct is borderline at 5-6 mm. No ascites. IMPRESSION: 1. Probable gallbladder sludge. No acute gallbladder pathology evident by sonographic evaluation. 2. Borderline size common duct. Recommend correlation with biliary laboratory values to exclude a de veloping biliary obstructive process. 3. Incidental note of punctate increased echogenicity of the right kidney. This could be on the basi s of nephrolithiasis. Hydronephrosis is not demonstrated. Correlate clinically and, as necessary, ded icated imaging follow-up may be obtained. POS: OFF
[2018-10-31 16:50] LABS: Troponin I Less than 0.010 ng/mL (< 0.028)
--- NOTE | 2018-10-31 17:34 | PDOC.EVN ---
Event Note - Event Note Event Note: Patient was being admitted for chest pain rule out after he experienced substernal chest pain when he was at work earlier today. His chest pain resolved after 2 doses of sublingual nitro and aspirin. He was seen by myself in ER with family at bedside. Discussed the plan to admit patient for further monitoring of his symptoms. Recommended he be monitored on telemetry with his extensive history of CAD with stents placed by Dr Koroma. Due to personal and financial reasons patient did not feel admission was necessary. Lipase was elevated over 500 to show probable pancreatitis. Trop negative x2. He has not been taking his home medications in 3 months due to not being able to afford them. He has not followed up with Dr Koroma at his scheduled appointment last month. Case management was consulted who discussed further resources for patient including financial assistance, however patient declined services. Offered to refill patient home medications, however he refused and stated the medications are at his pharmacy but he has not had a chance to fill them. He insisted on leaving against medical advice, I explained the risks with this decision including worsening condition and even and patient left AMA from ER 10/31/2018 prior to admission.
== END 2018-10-31 17:25 | disposition left against medical advice (07) ==
LOC: ERS 13:12
DX: K85.90 Acute pancreatitis without necrosis or infection, unspecified (principal); R07.2 Precordial pain; I25.2 Old myocardial infarction; E78.5 Hyperlipidemia, unspecified; I10 Essential (primary) hypertension; F17.210 Nicotine dependence, cigarettes, uncomplicated; Z71.6 Tobacco abuse counseling; Z79.82 Long term (current) use of aspirin; Z79.899 Other long term (current) drug therapy; Z79.51 Long term (current) use of inhaled steroids
CPT/HCPCS: 36415; 71045; 76705; 80053; 82550; 83690; 83880; 84484; 85025; 93005; 99406

== ENCOUNTER 2019-04-01 01:10 | Inpatient (IN) | payer SELFPAY ==
[2019-04-01 01:44] LABS: #Basophils 0.1 thou/uL (0.0-0.2); #Eosinphils 0.2 thou/uL (0.0-0.7); #Lymphocytes 2.7 thou/uL (1.20-3.40); #Monocytes 1.2 thou/uL (0.11-0.59); #Neutrophils 13.6 thou/uL (1.40-6.50); %Basophils 0.6 % (0.0-1.0); %Eosinophils 1.2 % (0.0-10.0); %Lymphocytes 15.3 % (21.0-51.0); %Monocytes 6.9 % (0.0-10.0); %Neutrophils 76.1 % (42.0-75.0); Hemoglobin 15.8 g/dL (14.0-18.0); Mean Corpuscular HGB CONC 34.8 g/dL (32.0-36.0); Mean Corpuscular Volume 94.8 fL (78.0-98.0); Mean Platelet Volume 6.4 fL (7.4-10.4); Platelet Count 297 thou/uL (130-400); RBC Distribution Width 11.7 % (11.5-14.5); Red Blood Cell (RBC) Count 4.79 mill/uL (4.70-6.10); White Blood Cell (WBC) Count 17.9 thou/uL (4.8-10.8)
[2019-04-01 02:05] LABS: ALT (SGPT) 24 U/L (8-55); AST (SGOT) 15 U/L (5-34); Albumin 4.6 g/dL (3.5-5.0); Alkaline Phosphatase 77 U/L (40-150); Anion Gap 16 mmol/L (10-20); BUN (Urea Nitrogen) 23 mg/dL (8.9-20.6); Bilirubin, Total 0.3 mg/dL (0.2-1.2); Calc. Creatinine Clearance 0 mL/min (70-130); Calcium 9.8 mg/dL (7.8-10.44); Carbon Dioxide 21 mmol/L (22-29); Chloride 106 mmol/L (98-107); Estimated GFR-MDRD 81; Globulin 2.3 g/dL (2.4-3.5); Glucose 160 mg/dL (70-105); Potassium 4.1 mmol/L (3.5-5.1); Protein, Total 6.9 g/dL (6.0-8.3); Sodium 139 mmol/L (136-145)
[2019-04-01] MEDS ORDERED: Aspirin Chewable 81 MG TAB ONE (03:01)
[2019-04-01] MEDS ORDERED: Nitroglycerin 2% Ointment 1 INCH/1 GM Packet ONE (03:01)
[2019-04-01] MEDS ORDERED: Ondansetron ODT 4 MG TAB SL PRN (04:33)
[2019-04-01] MEDS ORDERED: Ondansetron PF 4 MG/2 ML Vial IVP PRN (04:33)
[2019-04-01] MEDS ORDERED: Sodium Chloride 0.9% 1,000 ML IV SCH (04:33)
[2019-04-01] MEDS ORDERED: Nitroglycerin 2% Ointment 1 INCH/1 GM Packet TOP PRN (04:35)
[2019-04-01 05:57] LABS: Troponin I Less than 0.010 ng/mL (< 0.028)
[2019-04-01 07:54] LABS: Troponin I Less than 0.010 ng/mL (< 0.028)
--- NOTE | 2019-04-01 09:58 | RAD ---
FRONTAL VIEW CHEST: Date: 04/01/19 COMPARISON: 10/31/18. INDICATION: Right chest pain. FINDINGS: Lungs are clear. No effusion or pneumothorax. Cardiac silhouette is normal in size. IMPRESSION: No focal consolidation. POS: [facility]
[2019-04-01] MEDS ORDERED: Nitroglycerin 0.4 MG TAB (25 Tab Bottle) PO PRN (10:29)
[2019-04-01] MEDS ORDERED: Senokot S 8.6-50 MG TAB PO PRN (10:29)
[2019-04-01] MEDS ORDERED: Calcium Carbonate 500 MG ChewTAB PO PRN (10:29)
[2019-04-01] MEDS ORDERED: Bisacodyl 10 MG SUPP PR PRN (10:29)
[2019-04-01] MEDS ORDERED: Guaifenesin DM 100-10/5 ML UDCUP PO PRN (10:29)
--- NOTE | 2019-04-01 14:50 | NM ---
CARDIAC SPECT: CLINICAL HISTORY: 48-year-old male with chest pain, coronary artery disease, [place], stent placement, hypertension, dyslipi demia, and smoker. TECHNIQUE: A myocardial perfusion scan was performed using the single isotope one day protocol with technetium-9 9m sestamibi. 11 mCi were injected intravenously for the rest exam followed by 28 mCi for the stress exam. Pharmacologic stress with Lexiscan was monitored and interpreted by Dr. Griffin. FINDINGS: No significant fixed or reversible defects are seen. GATED SPECT LVEF: 35%. WALL MOTION EXAM: Global hypokinesis. IMPRESSION: No evidence of reversible ischemia. POS: [facility]
[2019-04-01] MEDS: Carvedilol 6.25 MG TAB PO SCH (16:35)
[2019-04-01] MEDS ORDERED: Regadenoson 0.4 MG/5 ML SYRINGE ONE (17:01)
--- NOTE | 2019-04-01 17:20 | CON ---
DATE OF CONSULTATION: HISTORY OF PRESENT ILLNESS: The patient is a 48-year-old gentleman with history of coronary artery disease, who presented with recurrent chest discomfort. The patient suffered a myocardial infarction in October of 2017. He underwent emergent cardiac catheterization. He subsequently underwent PTCA and stent placement to the left circumflex artery. The patient re-presented in December of 2017 with chest pain. He was continued on medical therapy. The patient states he was in usual state of health. When he developed recurrent midsternal chest discomfort, he took several nitroglycerin tablets without relief in pain and came to the emergency room. He states the discomfort lasts for approximately 4 hours. The pain did not radiate and was not associated with diaphoresis or dyspnea. The patient denies having any present chest discomfort. PAST MEDICAL HISTORY: Significant for; 1. Coronary artery disease. 2. Dyslipidemia. PAST SURGICAL HISTORY: He has had none. SOCIAL HISTORY: Long history of tobacco use. FAMILY HISTORY: Positive family history of heart disease. Father had a myocardial infarction. ALLERGIES: NO KNOWN DRUG ALLERGIES. MEDICATIONS: On admission aspirin 1 tablet daily. PHYSICAL EXAMINATION: GENERAL: This is a well-developed gentleman, in no acute distress. VITAL SIGNS: Blood pressure was 138/70. NECK: No jugular distention. LUNGS: Clear to auscultation. HEART: Regular rate and rhythm. Normal S1 and S2. ABDOMEN: Soft and nontender. EXTREMITIES: Show no edema. VASCULAR: Radial pulses 2+. LABORATORY DATA: White blood cell count 17.9, hemoglobin 15.8, hematocrit 45.4, and platelets are 297. Sodium is 139, potassium 4.1, chloride 106, bicarbonate 21, BUN 23, and creatinine 0.98. Troponin less than 0.01. His EKG reveals normal sinus rhythm with Q-waves suggestive of previous inferior infarct with no acute ST-T wave tract changes. IMPRESSION: 1. Unstable angina. 2. History of myocardial infarction. 3. History of PTCA and stent placement of the left circumflex artery. 4. Dyslipidemia. 5. Tobacco abuse. 6. Noncompliance. This gentleman presents with unstable angina. He has not been taking any of his cardiac medications besides aspirin. From a cardiac standpoint, the patient will be treated with aspirin, Plavix, and Lovenox. He will be restarted on lipid-lowering medication and Coreg. The patient has been scheduled to undergo stress testing. Further recommendations will follow. Job ID: [id number]
--- NOTE | 2019-04-01 17:40 | HP ---
REASON FOR ADMISSION: Chest pain. HISTORY OF PRESENTING ILLNESS: The patient gives history of waking up in the middle of the night with retrosternal chest pain. This was 5 to 6/10 in intensity. Lasted till around 4 in the morning. This was associated with nausea. No diaphoresis. He did not vomit as such. No radiation of this pain. No cough or expectoration. No fever. The patient also mentions that he has not been taking Plavix for last 3 months as he has no insurance or money to buy. He has had 2 stents placed, one to RCA in January of 2018, and a prior stent in October of 2017 to left circumflex by Dr. Koroma. All he takes is aspirin and Coreg daily. PAST MEDICAL AND SURGICAL HISTORY: History of coronary artery disease with prior 2 stents to RCA and circumflex, hypertension, and dyslipidemia. CURRENT MEDICATIONS: The patient is only taking aspirin 81 mg daily and Coreg 12.5 mg daily. He was supposed to take atorvastatin, lisinopril, and Plavix, but he is not taking the last three medications. ALLERGIES: NO KNOWN DRUG ALLERGIES. PERSONAL HISTORY: The patient continues to smoke one pack a day and has been doing so for the last 20 years. Does not abuse alcohol. Uses marijuana occasionally. Does not do drugs. Lives with his . FAMILY HISTORY: Both parents are living. Mother has history of diabetes. Father has history of coronary artery disease and is blind at present. CODE STATUS: Full. Power of research attorney is his . REVIEW OF SYSTEMS: CONSTITUTIONAL: Negative for weight loss or gain, ability to conduct usual activities. SKIN: Negative for rash, itching. EYES: Negative for double vision, pain. ENT/MOUTH: Negative for nose bleeding, neck stiffness, pain, tenderness. CARDIOVASCULAR: Negative for palpitations, dyspnea on exertion, orthopnea. RESPIRATORY: Negative for shortness of breath, wheezing, cough, hemoptysis, fever or night sweats. GASTROINTESTINAL: Negative for poor appetite, abdominal pain, heartburn, nausea, vomiting, constipation, or diarrhea. GENITOURINARY: Negative for urgency, frequency, dysuria, nocturia. MUSCULOSKELETAL: Negative for pain, swelling. NEUROLOGIC/PSYCHIATRIC: Negative for anxiety, depression. ALLERGY/IMMUNOLOGIC: Negative for skin rash, bleeding tendency. PHYSICAL EXAMINATION: GENERAL: The patient is a 48-year-old male, who is currently not in any acute distress. VITAL SIGNS: Blood pressure 138/70, pulse 70 per minute, respiratory rate 16 per minute, temperature 97.9 degrees Fahrenheit, and saturating 93% on room air. NECK: Supple. No elevated JVD. HEENT: Eyes, extraocular muscles intact. Pupils reacting to light. Oral cavity, mucous membranes are moist. No exudates or congestion. CARDIOVASCULAR: S1 and S2 heard. Regular rhythm. RESPIRATORY: Air entry 1+ bilateral. Scattered rhonchi plus no rales or wheezes. ABDOMEN: Soft. Bowel sounds heard. No tenderness, rigidity, or guarding. EXTREMITIES: No peripheral edema or calf tenderness. VASCULAR SYSTEM: Peripheral pulses 1+ bilateral. No ischemic ulcerations or gangrene. CENTRAL NERVOUS SYSTEM: No gross focal deficits noted. The patient is alert, awake, and oriented well. PSYCHIATRIC SYSTEM: The patient's mood is euthymic. No hallucinations or delusions. LABORATORY DATA: Chest x-ray done shows no focal infiltrate. Nuclear stress test done shows an ejection fraction of 35%. No fixed or reversible defects are seen. There is global hypokinesis with ejection fraction of around 35%. Echo with 2D Doppler is currently pending. Troponin x3 is negative. BUN 23, creatinine 0.9, and serum glucose 160. Electrolytes are stable. Albumin is 4.6. He has a white count of 17, H and H 15 and 45, platelet count 297, and MCV is 94 with 76% neutrophils. CLINICAL IMPRESSION AND PLAN: The patient will be under observation on telemetry for chest pain, rule out acute coronary syndrome with history of coronary artery disease with prior stents. He is currently taking only aspirin and Coreg. His ejection fraction on the stress test is 35%, when compared to normal ejection fraction in October of last year. Current echo is pending at present. I have discussed this findings with Dr. Koroma. The patient is likely for cardiac catheterization in the morning. We will continue him on aspirin, Lipitor, carvedilol, Plavix, and DuoNeb q.6 hourly p.r.n. He has received a liter of normal saline in the ER. We will check his labs in the morning especially white count. Clinically appeared mildly dehydrated this morning. We will keep him n.p.o. after midnight. Job ID: [id number]
[2019-04-01] MEDS: Atorvastatin Calcium 40 MG TAB PO SCH (22:37)
[2019-04-01] MEDS: Famotidine 20 MG TAB PO SCH (22:37)
[2019-04-01] MEDS: Enoxaparin Sodium 100 MG/ML SYRINGE SC SCH (22:37)
[2019-04-02 05:39] LABS: #Basophils 0.2 thou/uL (0.0-0.2); #Eosinphils 0.3 thou/uL (0.0-0.7); #Lymphocytes 3.1 thou/uL (1.20-3.40); #Monocytes 0.7 thou/uL (0.11-0.59); #Neutrophils 4.5 thou/uL (1.40-6.50); %Basophils 1.8 % (0.0-1.0); %Eosinophils 2.9 % (0.0-10.0); %Lymphocytes 35.4 % (21.0-51.0); %Monocytes 7.8 % (0.0-10.0); %Neutrophils 52.1 % (42.0-75.0); Hemoglobin 15.5 g/dL (14.0-18.0); Mean Corpuscular HGB CONC 33.4 g/dL (32.0-36.0); Mean Corpuscular Volume 95.8 fL (78.0-98.0); Mean Platelet Volume 6.9 fL (7.4-10.4); Platelet Count 278 thou/uL (130-400); RBC Distribution Width 11.8 % (11.5-14.5); Red Blood Cell (RBC) Count 4.84 mill/uL (4.70-6.10); White Blood Cell (WBC) Count 8.7 thou/uL (4.8-10.8)
[2019-04-02 05:52] LABS: Anion Gap 12 mmol/L (10-20); BUN (Urea Nitrogen) 14 mg/dL (8.9-20.6); Calc. Creatinine Clearance 142 mL/min (70-130); Calcium 8.9 mg/dL (7.8-10.44); Carbon Dioxide 21 mmol/L (22-29); Chloride 109 mmol/L (98-107); Estimated GFR-MDRD Greater than 90; Glucose 147 mg/dL (70-105); Sodium 138 mmol/L (136-145)
[2019-04-02] MEDS ORDERED: Enoxaparin Sodium 40 MG/0.4 ML SYRINGE SC SCH (09:00)
[2019-04-02] MEDS ORDERED: Aspirin 325 mg Enteric Coated Tablet PO SCH (09:00)
[2019-04-02] MEDS: Carvedilol 6.25 MG TAB PO SCH ×2 (10:11→17:26)
[2019-04-02] MEDS: Famotidine 20 MG TAB PO SCH ×2 (10:12→19:46)
[2019-04-02] MEDS: Enoxaparin Sodium 100 MG/ML SYRINGE SC SCH ×2 (10:12→19:44)
[2019-04-02] MEDS: Clopidogrel Bisulfate 75 MG TAB PO SCH (10:12)
[2019-04-02] MEDS: Aspirin 81 mg Enteric Coated Tablet PO SCH (10:12)
--- NOTE | 2019-04-02 17:34 | PDOC.CPN ---
- Subjective Date: 04/02/19 Time: 17:16 - Review of Systems General: denies: fever/chills, weight/appetite/sleep changes, night sweats, fatigue Respiratory: denies: cough, congestion, shortness of breath, exercise intolerance Cardiovascular: denies: chest pain, palpitation, edema, paroxysmal nocturnal dyspnea, orthopnea Gastrointestinal: denies: nausea, vomiting, diarrhea, constipation, abd pain, GI bleeding Musculoskeletal: denies: pain, tenderness, stiffness, swelling, arthritis/ arthralgias Neurological: denies: numbness, syncope, seizure, weakness - Objective Allergies/Adverse Reactions: Allergies Allergy/AdvReac Type Severity Reaction Status Date / Time No Known Allergies Allergy Verified 04/01/19 04:30 Visit Medications: Current Medications Acetaminophen (Tylenol) 650 mg PO Q4H PRN PRN Reason: Headache/Fever/Mild Pain (1-3) Albuterol/Ipratropium (Duoneb) 3 ml NEB Q6H PRN PRN Reason: SOB &/or Wheezing Aspirin (Ecotrin) 81 mg PO DAILY [facility] Last Admin: 04/02/19 10:12 Dose: 81 mg Atorvastatin Calcium (Lipitor) 40 mg PO HS [facility] Last Admin: 04/01/19 22:37 Dose: 40 mg Bisacodyl (Dulcolax) 10 mg MS DAILYPRN PRN PRN Reason: Constipation Calcium Carbonate (Tums) 1,000 mg PO Q4H PRN PRN Reason: Heartburn or Indigestion Carvedilol (Coreg) 6.25 mg PO BID[facility] Last Admin: 04/02/19 10:11 Dose: 6.25 mg Clopidogrel Bisulfate (Plavix) 75 mg PO DAILY [facility] Last Admin: 04/02/19 10:12 Dose: 75 mg Enoxaparin Sodium (Lovenox) 95 mg SC 0900,2100 [facility] Last Admin: 04/02/19 10:12 Dose: Not Given Famotidine (Pepcid) 20 mg PO BID [facility] Last Admin: 04/02/19 10:12 Dose: 20 mg Guaifenesin/Dextromethorphan (Robitussin Dm) 15 ml PO Q4H PRN PRN Reason: Cough Nitroglycerin (Nitrostat) 0.4 mg PO Q5MIN PRN PRN Reason: Chest Pain Senna/Docusate Sodium (Senokot S) 2 tab PO BIDPRN PRN PRN Reason: Constipation Vital Signs & Weight: Vital Signs Temp Pulse Resp BP BP Pulse Ox 04/02/19 15:22 98.2 F 76 18 142/78 H 98 04/02/19 12:03 98.5 F 69 20 153/90 H 95 04/02/19 10:36 97 04/02/19 10:11 121/66 04/02/19 07:59 98.6 F 68 20 125/76 96 Weight 207 lb 5 oz - Physical Exam General: alert & oriented x3, no apparent distress HEENT: mucus membranes moist, normocephaly Neck: supple neck, midline trachea, no JVD/HJR Cardiac: regular rate and rhythm, no murmur, regular rate Lungs: clear to auscultation, normal breath sounds, no wheeze, rales, rhonchi Neuro: grossly intact, coordination normal Abdomen: active bowel sounds, soft, non-tender Skin: clear Musculoskeletal: normal range of motion, no pain - Labs Result Diagrams: 04/02/19 05:07 04/02/19 05:07 Troponin/CKMB Troponin I Less than 0.010 ng/mL (< 0.028) 04/01/19 07:16 - Telemetry Sinus rhythms and dysrhythmias: sinus rhythm - Assessment/Plan Assessment/Plan: 1. Chest pain 2. CAD, s/p stent to RCA and LCx in 2018. 3. New onset dilated CM EF at 30-35% on echo. 4. Non compliance. PLAN: - Reduced EF a new finding. - Will plan on doing a LHC to further assess for ischemia. We spoke about risks and benefits of procedure, Risks included but not limited to stroke [place], , bleeding and need for blood transfusion, limb loss, organ loss, need for emergent CABG. He agrees to proceed. Right femoral access. Ideally LESLYE if in stent restenosis. If new stenosis BMS due to compliance issues. We looked up on [facility] for plavix and it is very affordbale $3 with card at [employer], highest [place] was $10 a month. He states he can afford this. Will do LESLYE if needed.
[2019-04-02] MEDS: Atorvastatin Calcium 40 MG TAB PO SCH (19:47)
[2019-04-03] MEDS: Clopidogrel Bisulfate 75 MG TAB PO SCH (05:49)
[2019-04-03] MEDS: Aspirin 81 mg Enteric Coated Tablet PO SCH (05:49)
[2019-04-03] MEDS: Carvedilol 6.25 MG TAB PO SCH ×2 (05:50→17:20)
[2019-04-03] MEDS: Famotidine 20 MG TAB PO SCH ×2 (05:50→20:00)
[2019-04-03] MEDS ORDERED: Lidocaine 1% (PF) 30 ML VIAL ONE (06:41)
[2019-04-03] MEDS ORDERED: Midazolam HCl 2 mg/2 ml Vial ONE (07:19)
[2019-04-03] MEDS ORDERED: Fentanyl 100 MCG/2 ML VIAL ONE ×2 (07:19→11:44)
[2019-04-03] MEDS ORDERED: Heparin 10,000 UNITS/1 ML VIAL ONE (07:48)
[2019-04-03] MEDS ORDERED: TICAGRELOR 90 MG TABLET ONE ×2 (08:03)
[2019-04-03] MEDS ORDERED: Morphine 2 MG/ML SYRINGE SLOW IVP PRN (08:16)
[2019-04-03] MEDS ORDERED: Sodium Chloride 0.9% 500 ML IV SCH (08:30)
[2019-04-03] MEDS ORDERED: Morphine 4 MG/ML VIAL ONE (10:08)
[2019-04-03] MEDS ORDERED: hydrALAZINE 20 MG/ML VIAL ONE (10:36)
[2019-04-03] MEDS ORDERED: Nitroglycerin 0.4 MG TAB (25 Tab Bottle) ONE (11:03)
[2019-04-03] MEDS ORDERED: hydrALAZINE 20 MG/ML VIAL SLOW IVP SCH (11:45)
[2019-04-03] MEDS ORDERED: Ondansetron PF 4 MG/2 ML Vial ONE (12:13)
[2019-04-03] MEDS ORDERED: Iopamidol 370 76% 100 ML VIAL ONE (15:59)
[2019-04-03] MEDS ORDERED: Iopamidol 370 76% 50 ML VIAL FS ONE (15:59)
--- NOTE | 2019-04-03 17:00 | EKG ---
Test Reason : C/O CHEST PAIN Blood Pressure : / mmHG Vent. Rate : 061 BPM Atrial Rate : 061 BPM P-R Int : 162 ms QRS Dur : 104 ms QT Int : 428 ms P-R-T Axes : 063 003 014 degrees QTc Int : 430 ms Normal sinus rhythm with sinus arrhythmia Normal ECG When compared with ECG of 03-APR-2019 09:29, (Unconfirmed) No significant change was found Confirmed by DR. Husam GARCIA ([id number] on 04/03/2019 4:59:48 PM Referred By: DELLA Confirmed By:DR. Husam GARCIA
[2019-04-03] MEDS: Lisinopril 2.5 MG TAB PO SCH (17:03)
[2019-04-03] MEDS: Acetaminophen 325 MG TAB PO PRN (17:20)
--- NOTE | 2019-04-03 18:52 | PDOC.HOSPP ---
- Subjective Encounter Date: 04/02/19 Encounter Time: 09:00 Subjective: no chest pain or sob feels better is not happy he is npo - Objective Vital Signs & Weight: Vital Signs (12 hours) Temp Pulse Resp BP BP Pulse Ox 04/03/19 17:20 148/85 H 04/03/19 17:03 89 04/03/19 15:45 98.7 F 89 16 123/79 95 04/03/19 14:00 97 Weight Weight 204 lb 3.2 oz I&O: 04/02/19 04/03/19 04/04/19 06:59 06:59 06:59 Intake Total 1180 720 Balance 1180 720 Result Diagrams: 04/02/19 05:07 04/02/19 05:07 Hospitalist ROS - Medication Medications: Active Medications Generic Name Dose Route Start Last Admin Trade Name Freq PRN Reason Stop Dose Admin Acetaminophen 650 mg 04/01/19 10:29 04/03/19 17:20 Tylenol PO 650 mg Q4H PRN Administration Headache/Fever/Mild Pain (1-3) Aspirin 81 mg 04/02/19 09:00 04/03/19 05:49 Ecotrin PO 81 mg DAILY [facility] Administration Atorvastatin Calcium 40 mg 04/01/19 21:00 04/02/19 19:47 Lipitor PO 40 mg HS [facility] Administration Carvedilol 6.25 mg 04/01/19 17:00 04/03/19 17:20 Coreg PO 6.25 mg BID-WM [facility] Administration Clopidogrel Bisulfate 75 mg 04/02/19 09:00 04/03/19 05:49 Plavix PO 75 mg DAILY [facility] Administration Famotidine 20 mg 04/01/19 21:00 04/03/19 05:50 Pepcid PO 20 mg BID [facility] Administration Lisinopril 2.5 mg 04/03/19 09:00 04/03/19 17:03 Zestril PO Not Given DAILY [facility] - Exam General Appearance: NAD, awake alert Eye: PERRL, anicteric sclera ENT: no oropharyngeal lesions, moist mucosa Neck: supple, no JVD Heart: RRR, no murmur Respiratory: no wheezes, no rales, rhonchi Gastrointestinal: soft, non-tender, non-distended, normal bowel sounds Extremities: no cyanosis, no edema Neurological: cranial nerve grossly intact, no focal deficits Psychiatric: normal affect, A&O x 3 Hosp A/P (1) Cardiomyopathy Code(s): I42.9 - CARDIOMYOPATHY, UNSPECIFIED Status: Acute Qualifiers: Cardiomyopathy type: ischemic Qualified Code(s): I25.5 - Ischemic cardiomyopathy (2) New onset of congestive heart failure Code(s): I50.9 - HEART FAILURE, UNSPECIFIED Status: Acute (3) HTN (hypertension) Code(s): I10 - ESSENTIAL (PRIMARY) HYPERTENSION Status: Chronic Qualifiers: Hypertension type: essential hypertension Qualified Code(s): I10 - Essential (primary) hypertension (4) CAD (coronary artery disease) Code(s): I25.10 - ATHSCL HEART DISEASE OF [place] CORONARY ARTERY W/O ANG PCTRS Status: Chronic Qualifiers: Coronary Disease-Associated Artery/Lesion type: [place] artery [place] vs. transplanted heart: [place] heart Associated angina: with stable angina Qualified Code(s): I25.118 - Atherosclerotic heart disease of [place] coronary artery with other forms of angina pectoris (5) Dyslipidemia Code(s): E78.5 - HYPERLIPIDEMIA, UNSPECIFIED Status: Chronic (6) Tobacco abuse Code(s): Z72.0 - TOBACCO USE Status: Chronic (7) Noncompliance with medication regimen Code(s): Z91.14 - PATIENT'S OTHER NONCOMPLIANCE WITH MEDICATION REGIMEN Status : Chronic - Plan will be getting echo and if this confirms low ef will get cath later today hemostable continue current meds will optimize meds after cath. d/w patient and at bedside
--- NOTE | 2019-04-03 18:55 | PDOC.HOSPP ---
- Subjective Encounter Date: 04/03/19 Encounter Time: 12:00 Subjective: no chest pain or palp feels better - Objective Vital Signs & Weight: Vital Signs (12 hours) Temp Pulse Resp BP BP Pulse Ox 04/03/19 17:20 148/85 H 04/03/19 17:03 89 04/03/19 15:45 98.7 F 89 16 123/79 95 04/03/19 14:00 97 Weight Weight 204 lb 3.2 oz I&O: 04/02/19 04/03/19 04/04/19 06:59 06:59 06:59 Intake Total 1180 720 Balance 1180 720 Result Diagrams: 04/02/19 05:07 04/02/19 05:07 Hospitalist ROS - Medication Medications: Active Medications Generic Name Dose Route Start Last Admin Trade Name Freq PRN Reason Stop Dose Admin Acetaminophen 650 mg 04/01/19 10:29 04/03/19 17:20 Tylenol PO 650 mg Q4H PRN Administration Headache/Fever/Mild Pain (1-3) Aspirin 81 mg 04/02/19 09:00 04/03/19 05:49 Ecotrin PO 81 mg DAILY KATERINA Administration Atorvastatin Calcium 40 mg 04/01/19 21:00 04/02/19 19:47 Lipitor PO 40 mg HS KATERINA Administration Carvedilol 6.25 mg 04/01/19 17:00 04/03/19 17:20 Coreg PO 6.25 mg BID-WM KATERINA Administration Clopidogrel Bisulfate 75 mg 04/02/19 09:00 04/03/19 05:49 Plavix PO 75 mg DAILY KATERINA Administration Famotidine 20 mg 04/01/19 21:00 04/03/19 05:50 Pepcid PO 20 mg BID KATERINA Administration Lisinopril 2.5 mg 04/03/19 09:00 04/03/19 17:03 Zestril PO Not Given DAILY KATERINA - Exam General Appearance: NAD, awake alert Eye: PERRL, anicteric sclera ENT: normocephalic atraumatic, no oropharyngeal lesions Neck: supple, no JVD Heart: RRR, no murmur Respiratory: no wheezes, no rales Gastrointestinal: soft, non-tender, non-distended, normal bowel sounds Extremities: no cyanosis, no edema Neurological: cranial nerve grossly intact, no focal deficits Psychiatric: normal affect, A&O x 3 Hosp A/P (1) Cardiomyopathy Code(s): I42.9 - CARDIOMYOPATHY, UNSPECIFIED Status: Acute Qualifiers: Cardiomyopathy type: ischemic Qualified Code(s): I25.5 - Ischemic cardiomyopathy (2) New onset of congestive heart failure Code(s): I50.9 - HEART FAILURE, UNSPECIFIED Status: Acute (3) HTN (hypertension) Code(s): I10 - ESSENTIAL (PRIMARY) HYPERTENSION Status: Chronic Qualifiers: Hypertension type: essential hypertension Qualified Code(s): I10 - Essential (primary) hypertension (4) CAD (coronary artery disease) Code(s): I25.10 - ATHSCL HEART DISEASE OF [place] CORONARY ARTERY W/O ANG PCTRS Status: Chronic Qualifiers: Coronary Disease-Associated Artery/Lesion type: [place] artery [place] vs. transplanted heart: [place] heart Associated angina: with stable angina Qualified Code(s): I25.118 - Atherosclerotic heart disease of [place] coronary artery with other forms of angina pectoris (5) Dyslipidemia Code(s): E78.5 - HYPERLIPIDEMIA, UNSPECIFIED Status: Chronic (6) Tobacco abuse Code(s): Z72.0 - TOBACCO USE Status: Chronic (7) Noncompliance with medication regimen Code(s): Z91.14 - PATIENT'S OTHER NONCOMPLIANCE WITH MEDICATION REGIMEN Status : Chronic - Plan had bare metal stent placed to ramus, had patent Cx and rca stents. continue asp, lipitor, plavix, coreg, lisinopril and nebs prn hemostable dc plan likely in am, meds are being optimized.
[2019-04-03] MEDS: Atorvastatin Calcium 40 MG TAB PO SCH (20:00)
[2019-04-04 06:39] LABS: #Basophils 0.1 thou/uL (0.0-0.2); #Eosinphils 0.3 thou/uL (0.0-0.7); #Lymphocytes 1.9 thou/uL (1.20-3.40); #Monocytes 0.8 thou/uL (0.11-0.59); #Neutrophils 7.2 thou/uL (1.40-6.50); %Basophils 0.5 % (0.0-1.0); %Eosinophils 2.6 % (0.0-10.0); %Lymphocytes 18.2 % (21.0-51.0); %Monocytes 7.9 % (0.0-10.0); %Neutrophils 70.7 % (42.0-75.0); Hemoglobin 16.7 g/dL (14.0-18.0); Mean Corpuscular HGB CONC 35.1 g/dL (32.0-36.0); Mean Corpuscular Hemoglobin 32.6 pg (27.0-31.0); Mean Corpuscular Volume 93.1 fL (78.0-98.0); Mean Platelet Volume 6.7 fL (7.4-10.4); Platelet Count 286 thou/uL (130-400); RBC Distribution Width 11.7 % (11.5-14.5); White Blood Cell (WBC) Count 10.2 thou/uL (4.8-10.8)
[2019-04-04 06:59] LABS: ALT (SGPT) 21 U/L (8-55); AST (SGOT) 14 U/L (5-34); Albumin 4.3 g/dL (3.5-5.0); Alkaline Phosphatase 72 U/L (40-150); Anion Gap 11 mmol/L (10-20); BUN (Urea Nitrogen) 15 mg/dL (8.9-20.6); Calc. Creatinine Clearance 105 mL/min (70-130); Calcium 9.5 mg/dL (7.8-10.44); Carbon Dioxide 24 mmol/L (22-29); Chloride 106 mmol/L (98-107); Estimated GFR-MDRD 70; Globulin 2.6 g/dL (2.4-3.5); Glucose 131 mg/dL (70-105); Potassium 3.8 mmol/L (3.5-5.1); Protein, Total 6.9 g/dL (6.0-8.3); Sodium 137 mmol/L (136-145)
[2019-04-04] MEDS: Clopidogrel Bisulfate 75 MG TAB PO SCH (09:30)
[2019-04-04] MEDS: Aspirin 81 mg Enteric Coated Tablet PO SCH (09:30)
[2019-04-04] MEDS: Carvedilol 6.25 MG TAB PO SCH (09:30)
[2019-04-04] MEDS: Famotidine 20 MG TAB PO SCH (09:30)
[2019-04-04] MEDS: Acetaminophen 325 MG TAB PO PRN (09:31)
[2019-04-04] MEDS: Lisinopril 2.5 MG TAB PO SCH (09:31)
[2019-04-04 15:27] VITALS: BP 117/74; TEMP 98
--- NOTE | 2019-04-05 11:28 | DIS ---
DATE OF ADMISSION: 04/01/2019 DATE OF DISCHARGE: 04/04/2019 DISCHARGE DISPOSITION: Home. PRIMARY DISCHARGE DIAGNOSES: Coronary artery disease status post stent placed to [facility]. A bare-metal stent was placed. He had patent left circumflex and RCA stent from prior. SECONDARY DISCHARGE DIAGNOSES: Noncompliance with medication, hypertension, tobacco abuse, cardiomyopathy with ejection fraction of 35% to 40%, dyslipidemia. PROCEDURES DONE DURING HOSPITALIZATION: The patient has had cardiac catheterization done by Dr. Koroma on 04/03/2019 with placement of bare-metal stent to [facility]. He had patent left circumflex and RCA stent. Echo with 2D Doppler showed an EF of 30% to 35%, but coronary catheterization showed an ejection fraction of 40%, had diastolic dysfunction, severe inferior wall hypokinesis was seen on the echo. Nuclear stress test done showed no significant fixed or reversible defect. Had an ejection fraction of 35%. He had global hypokinesis on the stress test. H and H of 16 and 47, platelet count of 286, white count of 10, MCV is 93, BUN of 15, creatinine of 1.1. Troponin x3 negative. DISCHARGE MEDICATIONS: 1. Aspirin 81 mg p.o. daily. 2. Plavix 75 mg p.o. daily. 3. Lipitor 40 mg p.o. at bedtime. 4. Coreg 6.25 mg twice daily. 5. Lisinopril 2.5 mg daily. ALLERGIES: NO KNOWN DRUG ALLERGIES. INPATIENT CONSULT: Dr. Koroma/Dr. Griffin for Cardiology. DISCHARGE PLAN: The patient to find a primary care physician and follow up in 1 week. He needs to follow up with Dr. Koroma in 4 weeks. BRIEF COURSE DURING HOSPITALIZATION: The patient initially came in with complaints of chest pain waking him in the middle of the night. He has known history of coronary artery disease with 2 stents placed to RCA and circumflex in the past. He was noncompliant with his Plavix and was taking only aspirin and once daily Coreg due to financial issues. His prior stenting was done in January and October of last year. The patient has had nuclear stress test done, which showed global hypokinesis with ejection fraction of 35%. In view of this, he has had an echo with 2D Doppler done, which confirmed ejection fraction of around 30% to 35% with severe inferior wall hypokinesis. He has had consultation with Dr. Griffin/Dr. Koroma for Cardiology. The patient has had coronary angiogram done with placement of stent to intermediate ramus, which was a bare-metal stent due to the patient's history of noncompliance. He has remained hemodynamically stable, ambulating and eating well after coronary catheterization. He has been cleared for discharge by Dr. Koroma. The patient was counseled with regard to medication compliance. He is aware Plavix costs him only 3 dollars and 50 cents for a month's use in [facility], if he uses coupons. He was counseled with regard to tobacco abuse as well. Please note, I have seen and examined the patient on the day of discharge. Job ID: [id number]
--- NOTE | 2019-04-06 13:23 | EKG ---
Test Reason : Blood Pressure : / mmHG Vent. Rate : 080 BPM Atrial Rate : 080 BPM P-R Int : 140 ms QRS Dur : 096 ms QT Int : 382 ms P-R-T Axes : 043 -23 006 degrees QTc Int : 440 ms Normal sinus rhythm Inferior infarct , age undetermined Abnormal ECG Confirmed by ATILIO CRUZ ([id number]), editor managing director THEA SORENSEN ([id number]) on 04/06/2019 1:23:14 PM Referred By: Confirmed By:ATILIO CRUZ
== END 2019-04-04 15:32 | disposition home or self-care (01) | DRG 249 ==
LOC: ERS 01:10 → 2SW 02:55 → OBSVTOIN 02:55
PROVIDERS: ADMIT Internal Medicine; ATTEND Internal Medicine
PROC: 4A023N7 Measurement of Cardiac Sampling and Pressure, Left Heart, Percutaneous Approach (ICD-10-PCS; principal; 2019-04-01)
PROC: B2111ZZ Fluoroscopy of Multiple Coronary Arteries using Low Osmolar Contrast (ICD-10-PCS; 2019-04-01)
PROC: B2151ZZ Fluoroscopy of Left Heart using Low Osmolar Contrast (ICD-10-PCS; 2019-04-01)
PROC: 02703DZ Dilation of Coronary Artery, One Artery with Intraluminal Device, Percutaneous Approach (ICD-10-PCS; 2019-04-01)
DX: I25.110 Atherosclerotic heart disease of native coronary artery with unstable angina pectoris (principal); I11.0 Hypertensive heart disease with heart failure; I50.9 Heart failure, unspecified; E78.5 Hyperlipidemia, unspecified; I25.5 Ischemic cardiomyopathy; Z95.5 Presence of coronary angioplasty implant and graft; Z79.82 Long term (current) use of aspirin; Z87.891 Personal history of nicotine dependence; I25.2 Old myocardial infarction; Z91.14 Patient's other noncompliance with medication regimen
CPT/HCPCS: 36415; 71045; 78452; 80048; 80053; 84484; 85025; 85347; 92928; 93005; 93010; 93017; 93306; 93458; 93798; 94760; 99152; A9500; C1769; C1876; J0360; J1644; J1650; J2001; J2250; J2270; J2405; J2785; J3010; Q9967

== ENCOUNTER 2019-06-20 08:41 | Observation (INO) | payer SELFPAY ==
--- NOTE | 2019-06-20 09:12 | RAD ---
Chest AP view INDICATION: Chest pain COMPARISON: April 01, 2019 FINDINGS: Lungs:The lungs are clear Cardiac silhouette:The cardiomediastinal silhouette appears within normal limits. Pulmonary vasculature:Normal Pleural spaces:No pleural effusion or pneumothorax is demonstrated. Upper abdomen:No abnormality seen. Osseous structures: No acute osseous abnormality. Additional findings:None. IMPRESSION: No acute cardiopulmonary abnormality.
[2019-06-20] MEDS ORDERED: Aspirin Chewable 81 MG TAB ONE (09:17)
[2019-06-20] MEDS ORDERED: Nitroglycerin 0.4 MG TAB 1 EACH ONE (09:17)
[2019-06-20 09:32] LABS: #Basophils 0.1 thou/uL (0.0-0.2); #Eosinphils 0.2 thou/uL (0.0-0.7); #Monocytes 0.7 thou/uL (0.11-0.59); #Neutrophils 5.9 thou/uL (1.40-6.50); %Basophils 0.8 % (0.0-1.0); %Eosinophils 1.7 % (0.0-10.0); %Monocytes 7.5 % (0.0-10.0); Hemoglobin 16.7 g/dL (14.0-18.0); Mean Corpuscular HGB CONC 34.9 g/dL (32.0-36.0); Mean Corpuscular Hemoglobin 32.9 pg (27.0-31.0); Mean Corpuscular Volume 94.2 fL (78.0-98.0); Mean Platelet Volume 7.3 fL (7.4-10.4); Platelet Count 266 thou/uL (130-400); RBC Distribution Width 11.2 % (11.5-14.5); Red Blood Cell (RBC) Count 5.09 mill/uL (4.70-6.10); White Blood Cell (WBC) Count 8.9 thou/uL (4.8-10.8)
[2019-06-20 09:45] LABS: ALT (SGPT) 29 U/L (8-55); AST (SGOT) 17 U/L (5-34); Albumin 4.5 g/dL (3.5-5.0); Alkaline Phosphatase 91 U/L (40-110); Anion Gap 14 mmol/L (10-20); BUN (Urea Nitrogen) 17 mg/dL (8.9-20.6); Bilirubin, Total 0.3 mg/dL (0.2-1.2); Calc. Creatinine Clearance 0 mL/min (70-130); Calcium 10.2 mg/dL (7.8-10.44); Carbon Dioxide 20 mmol/L (22-29); Chloride 106 mmol/L (98-107); Estimated GFR-MDRD 85; Globulin 2.9 g/dL (2.4-3.5); Glucose 201 mg/dL (70-105); Potassium 4.5 mmol/L (3.5-5.1); Protein, Total 7.4 g/dL (6.0-8.3); Sodium 135 mmol/L (136-145)
[2019-06-20] MEDS ORDERED: Ondansetron PF 4 MG/2 ML Vial ONE (10:07)
[2019-06-20] MEDS ORDERED: Nitroglycerin 2% Ointment 1 INCH/1 GM Packet ONE (10:07)
[2019-06-20] MEDS ORDERED: Morphine 4 MG/ML VIAL ONE (10:07)
[2019-06-20 12:25] VITALS: BMI 30.1
[2019-06-20] MEDS ORDERED: Ondansetron ODT 4 MG TAB PO PRN (13:02)
[2019-06-20] MEDS ORDERED: Ondansetron PF 4 MG/2 ML Vial IVP PRN (13:02)
--- NOTE | 2019-06-20 14:51 | HP ---
PRIMARY CARE PROVIDER: None. CHIEF COMPLAINT: Chest pain. HISTORY OF PRESENT ILLNESS: Mr. Zaragoza is a pleasant 49-year-old gentleman, who was seen at [facility] on June 20, 2019. He was hospitalized at this facility from April 01 to April 04 of this year. During that hospitalization, he had cardiac catheterization and PCI with bare metal stent. He reports that over the last couple of days, he has had left-sided chest pressure, nonradiating, worse with exertion, improved with morphine. He reports associated shortness of breath. He also reports cough that has been going on for approximately a week. He denies any fevers. He denies any abdominal pain. He reports that he is compliant with his medications, but also admits that he has run out of his medications. He rates chest pain as 4/10 to 7/10. The chest pain is on and off. REVIEW OF SYSTEMS: All systems were reviewed and found to be negative except for the pertinent positives mentioned above. PAST MEDICAL HISTORY: Coronary artery disease, myocardial infarction, dyslipidemia, hypertension. PAST SURGICAL HISTORY: PCI with cardiac stents x3. SOCIAL HISTORY: The patient reports occasional alcohol use. He smokes 1 pack of cigarettes a day. FAMILY HISTORY: Significant for coronary artery disease in his father side of family. ALLERGIES: NO KNOWN DRUG ALLERGIES. CURRENT MEDICATIONS: 1. Aspirin 81 mg daily. 2. Coreg 12.5 mg b.i.d. 3. Atorvastatin 10 mg at bedtime. 4. Lisinopril 20 mg daily. 5. Plavix 75 mg daily. 6. Albuterol two puffs every 4 hours as needed. 7. Azithromycin 250 mg daily. PHYSICAL EXAMINATION: GENERAL: On examination, Mr. Zaragoza is awake and alert, not in acute distress. VITAL SIGNS: Blood pressure is 104/78, pulse 65, respiratory rate 16, and oxygen saturation 96% on room air. He is afebrile. EYES: No scleral icterus. No conjunctival pallor. ENT: Moist mucosal membranes. No oropharyngeal erythema or exudates. NECK: Supple, nontender. Trachea is midline. RESPIRATORY: Accessory muscles of breathing are not active. Chest wall movements are symmetric bilaterally. Lungs are clear to auscultation without wheeze, rhonchi, or crepitations. CARDIOVASCULAR: S1 and S2 are heard, regular. Peripheral pulses palpable. NEUROLOGIC: Cranial nerves 2 through 12 are intact. MUSCULOSKELETAL: Power is 5/5 in all 4 extremities. ABDOMEN: Soft, nontender. Bowel sounds are heard. SKIN: No rashes or subcutaneous nodules. LYMPHATIC: No cervical lymphadenopathy. PSYCHIATRIC: Normal mood, normal affect. The patient is oriented to person, place, and time. LABORATORY DATA: Mr. Zaragoza' labs and investigations were reviewed. I reviewed his electrocardiogram, which shows normal sinus rhythm, no ST changes to suggest an acute coronary syndrome. I also reviewed his chest x-ray, which does not show any pulmonary infiltrates. He has an unremarkable CBC, decreased sodium of 135, normal potassium, normal creatinine, normal LFTs, and normal troponin-I. ASSESSMENT AND PLAN: Mr. Zaragoza is a pleasant 49-year-old gentleman, who was seen at [facility] on June 20, 2019. His problem list includes: 1. Chest pain: Mr. Zaragoza is presenting with chest pain. He is known to the Cardiology Service here and has 3 stents. He will be admitted to the hospital for telemetry monitoring. His troponin will be rechecked. Cardiology Service will be consulted for opinion and help with management. 2. Hyponatremia: Mild, likely asymptomatic. 3. Hypertension: Resume the patient's home medications once clarified, monitor vital signs and titrate antihypertensives as needed. 4. Dyslipidemia: Resume statin once clarified. 5. Tobacco abuse: The patient has been counseled regarding tobacco cessation. 6. Marijuana use: The patient has been counseled regarding marijuana cessation. Many thanks for allowing me to participate in your patient's care. Please feel free to contact me with any questions or concerns. LEVEL OF RISK: High. LEVEL OF COMPLEXITY: High. Job ID: [id number]
--- NOTE | 2019-06-20 17:12 | CON ---
DATE OF CONSULTATION: 06/20/2019 REASON FOR CONSULTATION: Recurrent chest pain. PRIMARY TOOL DRESSER: Chidi Koroma MD HISTORY OF PRESENT ILLNESS: Mr. Zaragoza is a 49-year-old gentleman, who has been seen and evaluated by Dr. Koroma in the past. He has a history of CAD, status post stent placement to the RCA and circumflex artery in 2017. He then underwent successful stent placement to the intermediate ramus branch with 2.5 x 60 mm bare-metal stent in March 2019. Recently, he states over the last 48 hours, he has had constant chest pain. He states it is unlike his previous cardiac pain. The pain waxes and wanes, but it is there over the last 48 hours and has been unremitting. He is able to walk. He states he has discomfort. Does not seem to worsen with deep breath, cough, or movement. Unfortunately, he continues to smoke. There has also been some compliance issues were documented in the chart. PAST MEDICAL HISTORY: Previous AL, CAD, status post stent placement as above, hyperlipidemia, hypertension, noncompliance. SOCIAL HISTORY: Positive tobacco use. FAMILY HISTORY: Positive for CAD. HOME MEDICATIONS: Include Coreg, aspirin, atorvastatin, lisinopril, Plavix. REVIEW OF SYSTEMS: A 10-point review of systems is reviewed as above, otherwise negative. PHYSICAL EXAMINATION: GENERAL: Patient is a pleasant gentleman, who is in no acute distress. He does appear older than stated age. VITAL SIGNS: Blood pressure 132/73, pulse 54, temperature afebrile. NEUROLOGIC: The patient is alert and oriented x3 with no focal neurologic deficits. HEENT: Sclerae without icterus. Mouth has moist mucous membranes with normal pallor. NECK: No JVD. Carotid upstroke brisk. No bruits bilaterally. LUNGS: Clear to auscultation with unlabored respirations. BACK: No scoliosis or kyphosis. CARDIAC: Regular rate and rhythm with normal S1 and S2. No S3 or S4 noted. No significant rubs, murmurs, thrills, or gallops noted throughout the precordium. PMI is not displaced. There is no parasternal heave. ABDOMEN: Soft, nontender, nondistended. No peritoneal signs present. No hepatosplenomegaly. No abnormal striae. EXTREMITIES: 2+ femoral and 2+ dorsalis pedis pulses. No cyanosis, clubbing, or edema. SKIN: No gross abnormalities. PERTINENT LABORATORY DATA: CK, troponin negative. Sodium 135. White blood cell count 8.9. Hemoglobin 16.7. IMAGING STUDIES: EKG, normal sinus rhythm, normal EKG. IMPRESSION: 1. Atypical chest pain. 2. Coronary artery disease. 3. Status post stent placement. 4. Tobacco abuse. RECOMMENDATIONS: Mr. Sheriff EKG appears to be within normal limits. His initial troponin is negative. We will repeat his troponin. Consider a noninvasive stress study to assess for any areas of ischemia. We will keep n.p.o. after midnight. We will discuss with Dr. Chidi Koroma. Job ID: [id number]
[2019-06-20 17:27] LABS: Troponin I Less than 0.010 ng/mL (< 0.028)
[2019-06-20] MEDS ORDERED: Morphine 2 MG/ML SYRINGE SLOW IVP PRN (17:57)
[2019-06-20] MEDS: Carvedilol 6.25 MG TAB PO SCH (18:35)
[2019-06-20] MEDS ORDERED: Atorvastatin Calcium 40 MG TAB PO SCH (21:00)
[2019-06-20 21:34] LABS: Troponin I 0.015 ng/mL (< 0.028)
[2019-06-21] MEDS ORDERED: Acetaminophen 325 MG TAB PO PRN (01:19)
[2019-06-21] MEDS ORDERED: Acetaminophen 500 MG TAB PO PRN (01:19)
[2019-06-21] MEDS: Carvedilol 6.25 MG TAB PO SCH (08:43)
[2019-06-21] MEDS ORDERED: Lisinopril 2.5 MG TAB PO SCH (09:00)
[2019-06-21] MEDS ORDERED: FLU VACC QS2019-20(6MOS UP)/PF 60 MCG/0.5 ML SYRINGE IM ONE (09:00)
[2019-06-21] MEDS ORDERED: Aspirin 325 mg Enteric Coated Tablet PO SCH (09:00)
--- NOTE | 2019-06-21 13:22 | NM ---
EXAM: CARDIAC SPECT HISTORY: Chest pain, coronary artery disease, hypertension, dyslipidemia, smoker TECHNIQUE: A myocardial perfusion scan was performed using the single isotope 1 day protocol with josie hnetium 99m sestamibi. [10 mCi] was injected intravenously for the rest exam followed by 30 mCi for the stress study. Pharmacologic stress with adenosine was monitored and interpreted by Husam Herrera nurse practitioner FINDINGS: Homogeneous tracer distribution is seen in the myocardial segments on stress and rest image s without fixed or reversible defects. Gated SPECT LVEF: 44% Wall motion exam: Global hypokinesis IMPRESSION: No evidence of reversible ischemia
[2019-06-21] MEDS ORDERED: ADENOSINE 60 MG/20 ML VIAL ONE (14:25)
[2019-06-21 15:54] VITALS: BP 156/100; TEMP 97.6
--- NOTE | 2019-06-22 04:16 | DIS ---
DATE OF ADMISSION: 06/20/2019 DATE OF DISCHARGE: 06/21/2019 PRIMARY CARE PROVIDER: Unknown. DISCHARGE DIAGNOSES: 1. Chest pain. 2. Chest pain, most likely secondary to musculoskeletal etiology. CONSULTATIONS DURING THIS HOSPITALIZATION: Cardiology, Dr. Rodriguez. CONDITION OF PATIENT ON THE DAY OF DISCHARGE: Stable. I assessed Mr. Zaragoza on the day of discharge. He denies any chest pain or shortness of breath. Vital signs are stable. S1 and S2 are heard, regular. Lungs are clear to auscultation bilaterally. DISCHARGE MEDICATIONS: 1. Aspirin 81 mg daily. 2. Lipitor 40 mg at bedtime. 3. Coreg 6.25 mg 2 times a day. 4. Lisinopril 2.5 mg daily. HOSPITAL COURSE: Mr. Zaragoza is a pleasant 49-year-old gentleman, who was admitted to [facility] on June 20, 2019, for chest pain. Chest pain resolved following admission. He was seen by Cardiology Service. He underwent nuclear stress test, which showed left ventricular ejection fraction of 44%, global hypokinesis, and no evidence of reversible ischemia. He is being discharged home in a stable condition. Many thanks for allowing me to participate in your patient's care. Please feel free to contact me with any questions or concerns. Postdischarge followup: With cardiology, Dr. Koroma, in 10 days' time and with primary care provider in 3 days. DISCHARGE DESTINATION: Home. Job ID: [id number]
== END 2019-06-21 16:50 | disposition home or self-care (01) ==
LOC: ERS 08:41 → 2SW 12:09
PROVIDERS: ADMIT Internal Medicine; ATTEND Internal Medicine
DX: R07.89 Other chest pain (principal); I25.10 Atherosclerotic heart disease of native coronary artery without angina pectoris; I25.2 Old myocardial infarction; E78.5 Hyperlipidemia, unspecified; I10 Essential (primary) hypertension; F17.210 Nicotine dependence, cigarettes, uncomplicated; F12.11 Cannabis abuse, in remission; E87.1 Hypo-osmolality and hyponatremia; Z79.02 Long term (current) use of antithrombotics/antiplatelets; Z79.2 Long term (current) use of antibiotics; Z79.82 Long term (current) use of aspirin; Z79.899 Other long term (current) drug therapy; Z95.5 Presence of coronary angioplasty implant and graft
CPT/HCPCS: 36415; 71045; 78452; 80053; 84484; 85025; 85379; 93005; 93017; 94760; 96374; 96375; 96376; A9500; G0378; J0153; J2270; J2405

== ENCOUNTER 2022-08-12 00:22 | Emergency (ER) | payer SELFPAY ==
[2022-08-12 00:42] LABS: #Eosinphils 0.1 thou/uL (0.0-0.7); #Lymphocytes 0.5 thou/uL (1.20-3.40); #Monocytes 1.2 thou/uL (0.11-0.59); #Neutrophils 6.5 thou/uL (1.40-6.50); %Basophils 0.5 % (0.0-1.0); %Neutrophils 78.4 % (42.0-75.0); Hemoglobin 15.9 g/dL (14.0-18.0); Mean Corpuscular HGB CONC 35.6 g/dL (32.0-36.0); Mean Corpuscular Hemoglobin 33.7 pg (27.0-31.0); Mean Corpuscular Volume 94.6 fl (78.0-98.0); Mean Platelet Volume 6.3 fL (7.4-10.4); Platelet Count 240 10x3/uL (130-400); RBC Distribution Width 11.3 % (11.5-14.5); Red Blood Cell (RBC) Count 4.71 mill/uL (4.70-6.10); White Blood Cell (WBC) Count 8.3 10x3/uL (4.8-10.8)
[2022-08-12 01:12] LABS: ALT (SGPT) 29 U/L (8-55); AST (SGOT) 19 U/L (5-34); Albumin 4.3 g/dL (3.5-5.0); Alkaline Phosphatase 77 U/L (40-110); Anion Gap 14 mmol/L (10-20); BUN (Urea Nitrogen) 14 mg/dL (8.4-25.7); Calc. Creatinine Clearance 0 mL/min (70-130); Calcium 9.3 mg/dL (7.8-10.44); Carbon Dioxide 21 mmol/L (22-29); Chloride 106 mmol/L (98-107); Estimated GFR 78; Globulin 2.9 g/dL (2.4-3.5); Glucose 154 mg/dL (70-105); Potassium 3.6 mmol/L (3.5-5.1); Protein, Total 7.2 g/dL (6.0-8.3); Sodium 137 mmol/L (136-145)
[2022-08-12] MEDS ORDERED: Acetaminophen 500 MG TAB ONE (01:52)
[2022-08-12 02:24] LABS: Bilirubin, Total 0.3 mg/dL (0.2-1.2)
[2022-08-12 02:49] LABS: SARS-CoV-2 NAA Rapid Test DETECTED (NotDetected)
== END 2022-08-12 03:50 | disposition home or self-care (01) ==
LOC: ERS 00:22
DX: U07.1 COVID-19 (principal); J06.9 Acute upper respiratory infection, unspecified; E78.5 Hyperlipidemia, unspecified; E78.00 Pure hypercholesterolemia, unspecified; I10 Essential (primary) hypertension; F17.210 Nicotine dependence, cigarettes, uncomplicated
CPT/HCPCS: 71045; 80053; 83880; 84484; 85025; 93005; 96360

== ENCOUNTER 2023-06-27 16:31 | Emergency (ER) | payer OTHER, SELFPAY ==
[2023-06-27] MEDS ORDERED: Ketorolac Tromethamine 30 MG/ML VIAL ONE (17:13)
[2023-06-27] MEDS ORDERED: Acetaminophen 500 MG TAB ONE (17:13)
[2023-06-27 17:17] LABS: #Basophils 0.1 thou/uL (0.0-0.2); #Eosinphils 0.2 thou/uL (0.0-0.7); #Monocytes 0.8 thou/uL (0.11-0.59); #Neutrophils 7.6 thou/uL (1.40-6.50); %Basophils 0.5 % (0.0-1.0); %Eosinophils 1.4 % (0.0-10.0); %Lymphocytes 23.5 % (21.0-51.0); %Neutrophils 67.3 % (42.0-75.0); Hemoglobin 17.5 g/dL (14.0-18.0); Mean Corpuscular HGB CONC 35.7 g/dL (32.0-36.0); Mean Corpuscular Hemoglobin 32.5 pg (27.0-31.0); Mean Corpuscular Volume 90.9 fl (78.0-98.0); Mean Platelet Volume 8.6 fL (7.4-10.4); Platelet Count 295 10x3/uL (130-400); RBC Distribution Width 11.8 % (11.5-14.5); Red Blood Cell (RBC) Count 5.39 mill/uL (4.70-6.10); White Blood Cell (WBC) Count 11.2 10x3/uL (4.8-10.8)
[2023-06-27 17:42] LABS: ALT (SGPT) 19 U/L (8-55); AST (SGOT) 16 U/L (5-34); Albumin 4.5 g/dL (3.5-5.0); Alkaline Phosphatase 84 U/L (40-110); Anion Gap 14 mmol/L (10-20); BUN (Urea Nitrogen) 17 mg/dL (8.4-25.7); Bilirubin, Total 0.8 mg/dL (0.2-1.2); Calc. Creatinine Clearance 0 mL/min (70-130); Calcium 9.6 mg/dL (7.8-10.44); Carbon Dioxide 20 mmol/L (22-29); Chloride 105 mmol/L (98-107); Estimated GFR 92; Globulin 3.1 g/dL (2.4-3.5); Glucose 147 mg/dL (70-105); Potassium 3.5 mmol/L (3.5-5.1); Protein, Total 7.6 g/dL (6.0-8.3); Sodium 135 mmol/L (136-145)
[2023-06-27 17:47] LABS: Troponin I Less than 0.010 ng/mL (< 0.028)
[2023-06-27 19:50] LABS: Troponin I Less than 0.010 ng/mL (< 0.028)
[2023-06-27 20:50] LABS: Bacteria/HPF None Seen HPF (None Seen); Bilirubin Negative (Negative); Blood, Urine Negative (Negative); CAUTI Indications for Culture Dysuria,urgency,freq; Clarity Clear (Clear); Glucose, Urine (Dipstick) 70 mg/dL (Negative); Ketone, Urine Negative (Negative); Leukocyte Negative Leu/uL (Negative); Nitrite Negative (Negative); Protein, Urine (Dipstick) Negative (Neg-Trace); RBC/HPF 0-3 HPF (0-3); Specific Gravity, Urine 1.022 (1.002-1.036); Squamous Epithelial 0-3 HPF (0-3); Urobilinogen Normal mg/dL (Less than 2); WBC/HPF 0-3 HPF (0-3)
[2023-06-27 20:52] LABS: Urine Culture Reflex No No
== END 2023-06-27 20:33 | disposition home or self-care (01) ==
LOC: ERS 16:31
DX: R07.89 Other chest pain (principal); I10 Essential (primary) hypertension; I25.10 Atherosclerotic heart disease of native coronary artery without angina pectoris; I25.2 Old myocardial infarction; F17.210 Nicotine dependence, cigarettes, uncomplicated
CPT/HCPCS: 36415; 71045; 80053; 81001; 83880; 84484; 85025; 85379; 93005; 96374; J1885

== ENCOUNTER 2023-08-30 09:11 | Emergency (ER) | payer SELFPAY ==
[2023-08-30] MEDS ORDERED: Iopamidol-370 76% 500 ML MDV (1 ML CHARGE) ONE (09:16)
[2023-08-30 09:52] LABS: #Eosinphils 0.1 thou/uL (0.0-0.7); #Monocytes 0.7 thou/uL (0.11-0.59); #Neutrophils 7.4 thou/uL (1.40-6.50); %Basophils 0.4 % (0.0-1.0); %Eosinophils 1.2 % (0.0-10.0); %Lymphocytes 23.2 % (21.0-51.0); %Monocytes 6.3 % (0.0-10.0); %Neutrophils 68.4 % (42.0-75.0); Hematocrit 46.5 % (42.0-52.0); Hemoglobin 16.3 g/dL (14.0-18.0); Mean Corpuscular HGB CONC 35.1 g/dL (32.0-36.0); Mean Corpuscular Hemoglobin 32.7 pg (27.0-31.0); Mean Corpuscular Volume 93.4 fl (78.0-98.0); Mean Platelet Volume 8.9 fL (7.4-10.4); Platelet Count 288 10x3/uL (130-400); RBC Distribution Width 11.9 % (11.5-14.5); Red Blood Cell (RBC) Count 4.98 mill/uL (4.70-6.10); White Blood Cell (WBC) Count 10.8 10x3/uL (4.8-10.8)
[2023-08-30 10:24] LABS: ALT (SGPT) 17 U/L (8-55); AST (SGOT) 12 U/L (5-34); Albumin 4.4 g/dL (3.5-5.0); Alkaline Phosphatase 86 U/L (40-110); Anion Gap 13 mmol/L (10-20); BUN (Urea Nitrogen) 19 mg/dL (8.4-25.7); Bilirubin, Total 0.7 mg/dL (0.2-1.2); Calc. Creatinine Clearance 0 mL/min (70-130); Calcium 9.5 mg/dL (7.8-10.44); Carbon Dioxide 26 mmol/L (22-29); Chloride 103 mmol/L (98-107); Estimated GFR 78; Globulin 2.9 g/dL (2.4-3.5); Glucose 260 mg/dL (70-105); Lipase 54 U/L (8-78); Potassium 3.7 mmol/L (3.5-5.1); Protein, Total 7.3 g/dL (6.0-8.3); Sodium 138 mmol/L (136-145); Troponin I Less than 0.010 ng/mL (< 0.028)
[2023-08-30] MEDS ORDERED: Nitroglycerin 0.4 MG TAB (25 Tab Bottle) ONE (10:29)
[2023-08-30] MEDS ORDERED: Morphine 4 MG/ML VIAL ONE (10:29)
[2023-08-30] MEDS ORDERED: Aspirin Chewable 81 MG TAB ONE (10:29)
[2023-08-30 13:08] LABS: Troponin I Less than 0.010 ng/mL (< 0.028)
== END 2023-08-30 14:00 | disposition home or self-care (01) ==
LOC: ERS 09:11
DX: R07.89 Other chest pain (principal); R73.9 Hyperglycemia, unspecified; I10 Essential (primary) hypertension; I25.2 Old myocardial infarction; E78.00 Pure hypercholesterolemia, unspecified; F17.210 Nicotine dependence, cigarettes, uncomplicated; Z95.5 Presence of coronary angioplasty implant and graft; Z86.711 Personal history of pulmonary embolism
CPT/HCPCS: 36415; 71046; 71275; 80053; 83690; 83880; 84484; 85025; 85379; 93005; 93970; 94760; 96374; J2270; Q9967

== ENCOUNTER 2023-09-20 10:49 | Emergency (ER) | payer BC ==
[2023-09-20 13:06] LABS: #Basophils 0.1 thou/uL (0.0-0.2); #Eosinphils 0.2 thou/uL (0.0-0.7); #Monocytes 0.7 thou/uL (0.11-0.59); #Neutrophils 6.3 thou/uL (1.40-6.50); %Basophils 0.5 % (0.0-1.0); %Eosinophils 1.6 % (0.0-10.0); %Lymphocytes 26.8 % (21.0-51.0); %Monocytes 6.7 % (0.0-10.0); Hematocrit 49.8 % (42.0-52.0); Hemoglobin 17.3 g/dL (14.0-18.0); Mean Corpuscular HGB CONC 34.7 g/dL (32.0-36.0); Mean Corpuscular Hemoglobin 32.6 pg (27.0-31.0); Mean Corpuscular Volume 93.8 fl (78.0-98.0); Mean Platelet Volume 8.8 fL (7.4-10.4); Platelet Count 332 10x3/uL (130-400); RBC Distribution Width 12.2 % (11.5-14.5); Red Blood Cell (RBC) Count 5.31 mill/uL (4.70-6.10); White Blood Cell (WBC) Count 9.8 10x3/uL (4.8-10.8)
[2023-09-20 13:25] LABS: ALT (SGPT) 23 U/L (8-55); AST (SGOT) 18 U/L (5-34); Albumin 4.7 g/dL (3.5-5.0); Alkaline Phosphatase 91 U/L (40-110); Anion Gap 13 mmol/L (10-20); BUN (Urea Nitrogen) 20 mg/dL (8.4-25.7); Bilirubin, Total 0.7 mg/dL (0.2-1.2); Calc. Creatinine Clearance 0 mL/min (70-130); Calcium 10.1 mg/dL (7.8-10.44); Carbon Dioxide 26 mmol/L (22-29); Chloride 104 mmol/L (98-107); Estimated GFR 76; Globulin 2.9 g/dL (2.4-3.5); Glucose 137 mg/dL (70-105); Potassium 4.5 mmol/L (3.5-5.1); Protein, Total 7.6 g/dL (6.0-8.3); Sodium 138 mmol/L (136-145)
== END 2023-09-20 14:28 | disposition home or self-care (01) ==
LOC: ERS 10:49
DX: K92.2 Gastrointestinal hemorrhage, unspecified (principal); I10 Essential (primary) hypertension; I25.2 Old myocardial infarction; F17.210 Nicotine dependence, cigarettes, uncomplicated; Z55.6 Problems related to health literacy; Z79.82 Long term (current) use of aspirin
CPT/HCPCS: 36415; 74177; 80053; 83605; 83690; 85025

== ENCOUNTER 2024-01-12 09:50 | Inpatient (IN) | payer BC ==
[2024-01-12 10:36] LABS: #Basophils 0.03 10x3/uL (0.0-0.2); %Basophils 0.3 % (0.0-1.0); %Eosinophils 1.3 % (0.0-10.0); %Lymphocytes 22.8 % (21.0-51.0); %Monocytes 6.9 % (0.0-10.0); %Neutrophils 68.4 % (42.0-75.0); Hematocrit 44.5 % (42.0-52.0); Hemoglobin 15.4 g/dL (14.0-18.0); Mean Corpuscular HGB CONC 34.6 g/dL (32.0-36.0); Mean Corpuscular Hemoglobin 33.2 pg (27.0-31.0); Mean Corpuscular Volume 95.9 fL (78.0-98.0); Mean Platelet Volume 8.9 fL (7.4-10.4); Platelet Count 233 10x3/uL (130-400); RBC Distribution Width 12.2 % (11.5-14.5); Red Blood Cell (RBC) Count 4.64 mill/uL (4.70-6.10)
[2024-01-12 11:00] LABS: ALT (SGPT) 19 U/L (8-55); AST (SGOT) 16 U/L (5-34); Albumin 3.6 g/dL (3.5-5.0); Alkaline Phosphatase 84 U/L (40-110); Anion Gap 14 mmol/L (10-20); BUN (Urea Nitrogen) 17 mg/dL (8.4-25.7); Bilirubin, Total 0.4 mg/dL (0.2-1.2); Calc. Creatinine Clearance 0 mL/min (70-130); Calcium 8.8 mg/dL (7.8-10.44); Carbon Dioxide 18 mmol/L (22-29); Chloride 109 mmol/L (98-107); Estimated GFR 99; Globulin 2.9 g/dL (2.4-3.5); Glucose 285 mg/dL (70-105); Lipase 68 U/L (8-78); Potassium 3.8 mmol/L (3.5-5.1); Protein, Total 6.5 g/dL (6.0-8.3); Sodium 137 mmol/L (136-145)
[2024-01-12 11:36] LABS: Troponin I Less than 0.010 ng/mL (< 0.028)
[2024-01-12] MEDS ORDERED: Nitroglycerin 2% Ointment 1 INCH/1 GM Packet ONE (11:53)
[2024-01-12] MEDS ORDERED: Ondansetron PF 4 MG/2 ML Vial IVP PRN ×2 (12:26→12:44)
[2024-01-12] MEDS ORDERED: Ondansetron ODT 4 MG TAB PO PRN ×2 (12:26→12:44)
[2024-01-12] MEDS ORDERED: Calcium Carbonate 500 MG ChewTAB PO PRN (12:44)
[2024-01-12] MEDS ORDERED: Senokot S 8.6-50 MG TAB PO PRN (12:44)
[2024-01-12] MEDS ORDERED: Acetaminophen 650 MG Suppository PR PRN (12:44)
[2024-01-12 13:47] VITALS: BMI 31.1
[2024-01-12 14:15] LABS: Hemoglobin A1c 6.7 % (4.0-6.0)
[2024-01-12 14:24] LABS: Magnesium 1.9 mg/dL (1.6-2.6)
[2024-01-12 15:19] LABS: Troponin I Less than 0.010 ng/mL (< 0.028)
[2024-01-12] MEDS: Carvedilol 3.125 MG TAB PO SCH (17:10)
[2024-01-12] MEDS: Famotidine 20 MG TAB PO SCH (20:11)
[2024-01-12 20:56] LABS: Troponin I Less than 0.010 ng/mL (< 0.028)
[2024-01-13 04:20] LABS: #Basophils 0.05 10x3/uL (0.0-0.2); %Basophils 0.6 % (0.0-1.0); %Eosinophils 2.7 % (0.0-10.0); %Lymphocytes 37.7 % (21.0-51.0); %Monocytes 9.7 % (0.0-10.0); %Neutrophils 48.9 % (42.0-75.0); Hematocrit 46.3 % (42.0-52.0); Hemoglobin 16.2 g/dL (14.0-18.0); Mean Corpuscular Hemoglobin 32.3 pg (27.0-31.0); Mean Corpuscular Volume 92.2 fL (78.0-98.0); Mean Platelet Volume 8.7 fL (7.4-10.4); Platelet Count 236 10x3/uL (130-400); RBC Distribution Width 12.1 % (11.5-14.5); Red Blood Cell (RBC) Count 5.02 mill/uL (4.70-6.10)
[2024-01-13 05:12] LABS: Anion Gap 14 mmol/L (10-20); BUN (Urea Nitrogen) 14 mg/dL (8.4-25.7); Calc. Creatinine Clearance 141 mL/min (70-130); Calcium 9.1 mg/dL (7.8-10.44); Carbon Dioxide 18 mmol/L (22-29); Chloride 111 mmol/L (98-107); Estimated GFR 105; Glucose 129 mg/dL (70-105); Potassium 3.8 mmol/L (3.5-5.1); Sodium 139 mmol/L (136-145)
[2024-01-13] MEDS ORDERED: Regadenoson 0.4 MG/5 ML SYRINGE ONE (10:05)
[2024-01-13] MEDS: Enoxaparin 40 MG (0.4 mL) SYRINGE SC SCH (12:24)
[2024-01-13] MEDS: Aspirin 81 mg Enteric Coated Tablet PO SCH (12:25)
[2024-01-13] MEDS: Lisinopril 2.5 MG TAB PO SCH (12:25)
[2024-01-13] MEDS: Atorvastatin Calcium 40 MG TAB PO SCH (14:36)
[2024-01-14 04:49] LABS: #Basophils 0.07 10x3/uL (0.0-0.2); %Basophils 0.8 % (0.0-1.0); %Eosinophils 2.4 % (0.0-10.0); %Lymphocytes 28.5 % (21.0-51.0); %Monocytes 9.5 % (0.0-10.0); %Neutrophils 58.4 % (42.0-75.0); Hematocrit 47.1 % (42.0-52.0); Hemoglobin 16.6 g/dL (14.0-18.0); Mean Corpuscular HGB CONC 35.2 g/dL (32.0-36.0); Mean Corpuscular Hemoglobin 32.4 pg (27.0-31.0); Mean Platelet Volume 9.2 fL (7.4-10.4); Platelet Count 267 10x3/uL (130-400); Red Blood Cell (RBC) Count 5.12 mill/uL (4.70-6.10)
[2024-01-14 05:24] LABS: Anion Gap 15 mmol/L (10-20); BUN (Urea Nitrogen) 15 mg/dL (8.4-25.7); Calc. Creatinine Clearance 123 mL/min (70-130); Calcium 9.3 mg/dL (7.8-10.44); Carbon Dioxide 21 mmol/L (22-29); Chloride 108 mmol/L (98-107); Estimated GFR 96; Glucose 151 mg/dL (70-105); Potassium 3.7 mmol/L (3.5-5.1); Sodium 140 mmol/L (136-145)
[2024-01-14] MEDS: Nicotine 21 MG PATCH TD PRN (08:12)
[2024-01-15] MEDS: Nitroglycerin 0.4 MG TAB (25 Tab Bottle) SL PRN (17:40)
[2024-01-15] MEDS ORDERED: Communication Order-Pharmacy FS SCH (18:30)
[2024-01-15] MEDS: Acetaminophen 325 MG TAB PO PRN (21:47)
[2024-01-16] MEDS: Sodium Chloride 0.9% 250 ML IV SCH ×2 (01:05→11:51)
[2024-01-16] MEDS ORDERED: Heparin 10,000 UNITS/ 10 ML VIAL ONE (08:47)
[2024-01-16] MEDS ORDERED: Nitroglycerin 50 MG/250 ML BOT 0 ML ONE (08:48)
[2024-01-16] MEDS ORDERED: Midazolam HCl 2 mg/2 ml Vial ONE (09:21)
[2024-01-16] MEDS ORDERED: fentaNYL 50 mcg/mL 1 mL Vial ONE (09:21)
[2024-01-16] MEDS ORDERED: Sodium Chloride 0.9% 200 ML IV PRN (09:51)
[2024-01-16] MEDS ORDERED: Acetaminophen/Codeine 30-300mg Tablet PO PRN (09:51)
[2024-01-16] MEDS ORDERED: Iopamidol 370 76% 100 ML VIAL ONE (14:38)
[2024-01-17 09:37] LABS: Anion Gap 12 mmol/L (10-20); BUN (Urea Nitrogen) 15 mg/dL (8.4-25.7); Calc. Creatinine Clearance 123 mL/min (70-130); Calcium 9.8 mg/dL (7.8-10.44); Carbon Dioxide 26 mmol/L (22-29); Chloride 104 mmol/L (98-107); Estimated GFR 98; Glucose 157 mg/dL (70-105); Potassium 4.2 mmol/L (3.5-5.1); Sodium 138 mmol/L (136-145)
[2024-01-17] MEDS: Spironolactone 25 MG TAB PO SCH (09:44)
[2024-01-17] MEDS: Empagliflozin 10 MG TAB PO SCH (09:44)
[2024-01-17 15:59] VITALS: BP 127/77; TEMP 98
[2024-01-18] MEDS ORDERED: Sacubitril 24MG/Valsartan 26 MG TAB PO SCH (09:00)
== END 2024-01-17 17:58 | disposition home or self-care (01) | DRG 286 ==
LOC: ERS 09:50 → 2SW 12:10 → OBSVTOIN 01-14 09:31
PROVIDERS: ADMIT Internal Medicine; ATTEND Internal Medicine
PROC: 4A023N7 Measurement of Cardiac Sampling and Pressure, Left Heart, Percutaneous Approach (ICD-10-PCS; principal; 2024-01-16)
PROC: B2111ZZ Fluoroscopy of Multiple Coronary Arteries using Low Osmolar Contrast (ICD-10-PCS; 2024-01-16)
PROC: B2151ZZ Fluoroscopy of Left Heart using Low Osmolar Contrast (ICD-10-PCS; 2024-01-16)
DX: I25.10 Atherosclerotic heart disease of native coronary artery without angina pectoris (principal); I50.21 Acute systolic (congestive) heart failure; R07.89 Other chest pain; I42.0 Dilated cardiomyopathy; I11.0 Hypertensive heart disease with heart failure; I25.2 Old myocardial infarction; E78.5 Hyperlipidemia, unspecified; F17.210 Nicotine dependence, cigarettes, uncomplicated; R73.9 Hyperglycemia, unspecified; Z95.5 Presence of coronary angioplasty implant and graft; Z91.148 Patient's other noncompliance with medication regimen for other reason
CPT/HCPCS: 36415; 71045; 78452; 78472; 80048; 80053; 83036; 83690; 83735; 83880; 84443; 84484; 85025; 85379; 93005; 93017; 93306; 93458; 93798; 94760; 96372; 99152; A9502; A9560; C1769; C1887; G0378; J1644; J1650; J2250; J2785; J3010; J7030; Q9967

== ENCOUNTER → 2024-05-07 | Emergency (ER) | payer BC ==
[~2024-05-07] MED LIST: Azithromycin 250 MG TAB ONE; Iopamidol-370 76% 500 ML MDV (1 ML CHARGE) ONE; Ketorolac Tromethamine 30 MG (1 mL) VIAL ONE
[2024-05-07 21:10] LABS: #Basophils 0.04 10x3/uL (0.0-0.2); %Basophils 0.4 % (0.0-1.0); %Eosinophils 1.4 % (0.0-10.0); %Lymphocytes 26.8 % (21.0-51.0); %Monocytes 8.6 % (0.0-10.0); %Neutrophils 62.4 % (42.0-75.0); Hemoglobin 16.5 g/dL (14.0-18.0); Mean Corpuscular HGB CONC 34.4 g/dL (32.0-36.0); Mean Corpuscular Hemoglobin 32.7 pg (27.0-31.0); Mean Corpuscular Volume 95.2 fL (78.0-98.0); Mean Platelet Volume 8.8 fL (7.4-10.4); Platelet Count 301 10x3/uL (130-400); RBC Distribution Width 12.1 % (11.5-14.5); Red Blood Cell (RBC) Count 5.04 mill/uL (4.70-6.10)
[2024-05-07 21:29] LABS: ALT (SGPT) 18 U/L (8-55); AST (SGOT) 13 U/L (5-34); Albumin 4.2 g/dL (3.5-5.0); Alkaline Phosphatase 82 U/L (40-110); Anion Gap 18 mmol/L (10-20); BUN (Urea Nitrogen) 16 mg/dL (8.4-25.7); Bilirubin, Total 0.5 mg/dL (0.2-1.2); Calc. Creatinine Clearance 0 mL/min (70-130); Calcium 9.9 mg/dL (7.8-10.44); Carbon Dioxide 23 mmol/L (22-29); Chloride 103 mmol/L (98-107); Estimated GFR 63; Glucose 183 mg/dL (70-105); Lipase 61 U/L (8-78); Protein, Total 7.2 g/dL (6.0-8.3); Sodium 140 mmol/L (136-145)
[2024-05-07 21:34] LABS: Troponin I 0.011 ng/mL (< 0.028)
[2024-05-08 01:29] LABS: Troponin I Less than 0.010 ng/mL (< 0.028)
== END ==
LOC: ERS 20:38
DX: J44.1 Chronic obstructive pulmonary disease with (acute) exacerbation (principal); R07.89 Other chest pain; I10 Essential (primary) hypertension; F17.210 Nicotine dependence, cigarettes, uncomplicated
CPT/HCPCS: 36415; 71045; 71275; 80053; 83690; 84484; 85025; 93005; 96374; J1885; Q9967

== ENCOUNTER 2024-05-16 13:40 | Emergency (ER) | payer BC ==
[2024-05-16] MEDS ORDERED: Cyclobenzaprine 10 MG TAB ONE (15:45)
[2024-05-16] MEDS ORDERED: Ketorolac Tromethamine 30 MG (1 mL) VIAL ONE (15:45)
[2024-05-16 16:12] LABS: #Basophils 0.04 10x3/uL (0.0-0.2); %Basophils 0.5 % (0.0-1.0); %Eosinophils 2.3 % (0.0-10.0); %Lymphocytes 32.2 % (21.0-51.0); %Monocytes 7.7 % (0.0-10.0); %Neutrophils 56.9 % (42.0-75.0); Hematocrit 42.8 % (42.0-52.0); Hemoglobin 14.7 g/dL (14.0-18.0); Mean Corpuscular HGB CONC 34.3 g/dL (32.0-36.0); Mean Corpuscular Hemoglobin 32.8 pg (27.0-31.0); Mean Corpuscular Volume 95.5 fL (78.0-98.0); Mean Platelet Volume 8.7 fL (7.4-10.4); Platelet Count 243 10x3/uL (130-400); RBC Distribution Width 11.7 % (11.5-14.5); Red Blood Cell (RBC) Count 4.48 mill/uL (4.70-6.10)
[2024-05-16 16:42] LABS: Troponin I Less than 0.010 ng/mL (< 0.028)
[2024-05-16 16:58] LABS: ALT (SGPT) 16 U/L (8-55); AST (SGOT) 13 U/L (5-34); Albumin 3.7 g/dL (3.5-5.0); Alkaline Phosphatase 84 U/L (40-110); Anion Gap 13 mmol/L (10-20); BUN (Urea Nitrogen) 21 mg/dL (8.4-25.7); Bilirubin, Total 0.2 mg/dL (0.2-1.2); Calc. Creatinine Clearance 0 mL/min (70-130); Calcium 9.2 mg/dL (7.8-10.44); Carbon Dioxide 24 mmol/L (22-29); Chloride 108 mmol/L (98-107); Estimated GFR 98; Globulin 2.9 g/dL (2.4-3.5); Glucose 113 mg/dL (70-105); Potassium 3.6 mmol/L (3.5-5.1); Protein, Total 6.6 g/dL (6.0-8.3); Sodium 141 mmol/L (136-145)
== END 2024-05-16 17:24 | disposition home or self-care (01) ==
LOC: ERS 13:40
DX: M79.602 Pain in left arm (principal); M48.02 Spinal stenosis, cervical region; I25.2 Old myocardial infarction; I10 Essential (primary) hypertension; F17.210 Nicotine dependence, cigarettes, uncomplicated
CPT/HCPCS: 36415; 71045; 72125; 80053; 84484; 85025; 93005; 96372; J1885

== ENCOUNTER 2024-05-31 07:42 | Observation (INO) | payer BC ==
[2024-05-31 08:33] LABS: #Basophils 0.06 10x3/uL (0.0-0.2); %Basophils 0.4 % (0.0-1.0); %Eosinophils 1.2 % (0.0-10.0); %Lymphocytes 17.1 % (21.0-51.0); %Monocytes 7.2 % (0.0-10.0); %Neutrophils 73.5 % (42.0-75.0); Hematocrit 46.4 % (42.0-52.0); Hemoglobin 16.1 g/dL (14.0-18.0); Mean Corpuscular HGB CONC 34.7 g/dL (32.0-36.0); Mean Corpuscular Hemoglobin 32.7 pg (27.0-31.0); Mean Corpuscular Volume 94.1 fL (78.0-98.0); Platelet Count 284 10x3/uL (130-400); RBC Distribution Width 11.9 % (11.5-14.5); Red Blood Cell (RBC) Count 4.93 mill/uL (4.70-6.10)
[2024-05-31 08:47] LABS: ALT (SGPT) 15 U/L (8-55); AST (SGOT) 13 U/L (5-34); Albumin 3.8 g/dL (3.5-5.0); Alkaline Phosphatase 88 U/L (40-110); Anion Gap 15 mmol/L (10-20); BUN (Urea Nitrogen) 23 mg/dL (8.4-25.7); Bilirubin, Total 0.3 mg/dL (0.2-1.2); Calc. Creatinine Clearance 0 mL/min (70-130); Calcium 9.3 mg/dL (7.8-10.44); Carbon Dioxide 16 mmol/L (22-29); Chloride 106 mmol/L (98-107); Estimated GFR 103; Globulin 3.4 g/dL (2.4-3.5); Glucose 216 mg/dL (70-105); Lipase 97 U/L (8-78); Potassium 3.9 mmol/L (3.5-5.1); Protein, Total 7.2 g/dL (6.0-8.3); Sodium 133 mmol/L (136-145)
[2024-05-31 08:51] LABS: Troponin I Less than 0.010 ng/mL (< 0.028)
[2024-05-31] MEDS ORDERED: Nitroglycerin 2% Ointment 1 INCH/1 GM Packet ONE ×2 (09:00→15:33)
[2024-05-31] MEDS ORDERED: Aspirin Chewable 81 MG TAB ONE (09:01)
[2024-05-31] MEDS ORDERED: Morphine 4 MG/ML VIAL ONE (09:43)
[2024-05-31] MEDS ORDERED: Ondansetron PF 4 MG/2 ML Vial ONE (09:43)
[2024-05-31 11:37] LABS: Troponin I Less than 0.010 ng/mL (< 0.028)
[2024-05-31] MEDS ORDERED: Calcium Carbonate 500 MG ChewTAB PO PRN (12:47)
[2024-05-31] MEDS ORDERED: Nitroglycerin 0.4 MG TAB (25 Tab Bottle) SL PRN (12:47)
[2024-05-31] MEDS ORDERED: Ondansetron ODT 4 MG TAB PO PRN (12:47)
[2024-05-31] MEDS ORDERED: Acetaminophen 650 MG Suppository PR PRN (12:47)
[2024-05-31] MEDS ORDERED: Ondansetron PF 4 MG/2 ML Vial IVP PRN (12:47)
[2024-05-31] MEDS ORDERED: Acetaminophen 325 MG TAB PO PRN (12:47)
[2024-05-31] MEDS ORDERED: Senokot S 8.6-50 MG TAB PO PRN (12:47)
[2024-05-31 14:04] VITALS: BP 128/69
[2024-05-31 14:31] LABS: Troponin I Less than 0.010 ng/mL (< 0.028)
[2024-05-31] MEDS ORDERED: Nicotine 14 MG PATCH ONE (16:05)
[2024-05-31] MEDS: Nicotine 21 MG PATCH TD PRN (16:19)
[2024-05-31] MEDS: Nitroglycerin 2% Ointment 1 INCH/1 GM Packet TOP SCH (16:19)
[2024-05-31 17:26] LABS: Troponin I Less than 0.010 ng/mL (< 0.028)
[2024-05-31] MEDS ORDERED: Ketorolac Tromethamine 30 MG (1 mL) VIAL IVP SCH (18:45)
[2024-05-31] MEDS ORDERED: Sacubitril 49 MG/Valsartan 51 MG TABLET PO SCH (21:00)
[2024-05-31] MEDS ORDERED: Rosuvastatin 20 MG TAB PO SCH (21:00)
[2024-05-31] MEDS ORDERED: Famotidine 20 MG TAB PO SCH (21:00)
[2024-06-01] MEDS ORDERED: Spironolactone 25 MG TAB PO SCH (08:00)
[2024-06-01] MEDS ORDERED: Aspirin Chewable 81 MG TAB PO SCH (09:00)
[2024-06-01] MEDS ORDERED: Clopidogrel Bisulfate 75 MG TAB PO SCH (09:00)
[2024-06-01] MEDS ORDERED: Enoxaparin 40 MG (0.4 mL) SYRINGE SC SCH (09:00)
[2024-06-01] MEDS ORDERED: Dapagliflozin Propanediol 10 MG TAB PO SCH (09:00)
[2024-06-01] MEDS ORDERED: FLU (Fluarix Triv) TS24-25(6MOS UP)/PF 45 MCG/0.5 ML Syringe IM ONE (09:00)
== END 2024-05-31 18:03 | disposition home or self-care (01) ==
LOC: ERS 07:42 → ERHOLD 11:45
PROVIDERS: ADMIT Internal Medicine; ATTEND Internal Medicine
DX: R07.9 Chest pain, unspecified (principal); I10 Essential (primary) hypertension; I25.10 Atherosclerotic heart disease of native coronary artery without angina pectoris; I25.2 Old myocardial infarction; I26.99 Other pulmonary embolism without acute cor pulmonale; I25.5 Ischemic cardiomyopathy; E11.9 Type 2 diabetes mellitus without complications; E78.5 Hyperlipidemia, unspecified; F17.200 Nicotine dependence, unspecified, uncomplicated; Z95.5 Presence of coronary angioplasty implant and graft; Z91.148 Patient's other noncompliance with medication regimen for other reason
CPT/HCPCS: 36415; 71045; 80053; 83690; 83880; 84484; 85025; 85379; 93005; 94760; 96374; 96375; J2272; J2405